=== PATIENT | male | born 1950 | race Caucasian/White ===

== ENCOUNTER 2020-02-11 03:05 | Emergency (ER) | payer MEDICARE, OTHER, SELFPAY ==
[2020-02-11 03:11] VITALS: BP 157/80; PULSE 72; RESP 18; TEMP 36.1; O2SAT 99
--- NOTE | 2020-02-11 03:18 | CTR_ITS ---
PROCEDURE INFORMATION: Exam: CT Abdomen And Pelvis Without And With Contrast Exam date and time: 02/11/2020 3:49 AM Age: 69 years old Clinical indication: Abdominal pain; Flank; Left; Additional info: Lt. Flank pain TECHNIQUE: Imaging protocol: Computed tomography of the abdomen and pelvis without and with intravenous contrast. Radiation optimization: All CT scans at this facility use at least one of these dose optimization techniques: automated exposure control; mA and/or kV adjustment per patient size (includes targeted exams where dose is matched to clinical indication); or iterative reconstruction. Total DLP: 1275.79 mGy-cm Contrast material: VISI; Contrast volume: 95 ml; Contrast route: 20G; COMPARISON: No relevant prior studies available. FINDINGS: Lungs: Lung bases are clear. Liver: The liver is normal. Gallbladder and bile ducts: The gallbladder is normal. There is no biliary dilation. Pancreas: The pancreas is unremarkable. Spleen: Splenic size is normal. There are scattered calcifications consistent with healed granulomas. Adrenals: The adrenal glands are unremarkable. Kidneys and ureters: There is mild left hydronephrosis and hydroureter. No hydronephrosis on the right. There is a nonobstructive stone in the right kidney. There is mild left perinephric edema. Stomach and bowel: The stomach is decompressed, preventing meaningful evaluation of wall thickness. The small bowel is nondilated. There is no sign of inflammation. There is mild distal descending and sigmoid colonic diverticulosis without evidence of diverticulitis. Appendix: The appendix is not visible. Intraperitoneal space: There is no free air or significant intraperitoneal free fluid. Vasculature: There is moderate aortic atherosclerotic disease. There is no aortic aneurysm. Lymph nodes: There is no lymphadenopathy in the retroperitoneum, mesentery, pelvis or inguinal regions. Bladder: There is a 3 x 2 x 2 mm stone within the bladder wall or lumen at the level of the left ureterovesical junction. Reproductive: The prostate and seminal vesicles are unremarkable. Bones/joints: Bones are unremarkable. Soft tissues: The abdominal wall is intact. CT/CT abdomen pelvis wo/w [id number] IMPRESSION: 3 mm stone at the left ureterovesical junction probably within the bladder wall producing mild hydronephrosis. Radiation Dose CTDIVOL = (mGy): DLP = 1275.79 (mGy-cm)
[2020-02-11 03:27] VITALS: RESP 16
[2020-02-11] MEDS: morphine 4 mg/mL SDV 1 mL IVP (03:27)
[2020-02-11] MEDS: ondansetron 2 mg/ML SDV 2 mL 4 MG IVP (03:28)
[2020-02-11] MEDS: sodium chloride 0.9% 1,000 ML 100 ML IV (03:28)
--- NOTE | 2020-02-11 03:31 | W.ED.BACK ---
HPI - Back Pain/Injury General: Chief Complaint: Back Pain/Injury Stated Complaint: left lower back pain Time Seen by Provider: 02/11/20 03:11 History of Present Illness: HPI Narrative: Mr. Roy is a nice 69-year-old male who comes in complaining of intermittent left lower back and flank pain. He states his symptoms began at 8 AM yesterday and have been intermittent throughout the day. He is never had pain like this before. He describes it as sharp and stabbing. He denies any blood in his urine, fever, chills or dysuria. He states a hot shower helped this morning but that is the only thing that he is aware of that makes his symptoms better or worse. Patient states he has no chronic medical problems and denies having anything like this previously. Associated symptoms: Reports nausea; Deny abdominal pain, chills, difficulty walking, dysuria, fatigue, fever(s), hematuria, syncope, urinary urgency or vomiting Review of Systems General: Reports: other (negative unless marked) Const: Denies: fever, chills, body aches, fatigue, malaise or diaphoresis Eyes: Denies: change in vision or blurry vision ENMT: Denies: throat pain, painful swallowing, hoarseness, ear pain, ear discharge, Change in hearing or nasal discharge Card: Denies: chest pain, palpitations, irregular heart rhythm, syncope, pre-syncope, shortness of breath on exertion or shortness of breath when lying down Resp: Denies: shortness of breath, productive cough, non-productive cough, wheezing, coughing up blood or chest congestion GI: Reports: nausea; Denies: abdominal pain, vomiting, vomiting blood, coffee grounds in vomit, diarrhea, constipation, cramping, blood in stool or black tarry stool : Reports: flank pain; Denies: difficulty urinating, painful urination, urinary frequency, urinary urgency, decreased urine ouput, urinary incontinence or blood in urine Musc: Denies: neck pain, back pain, extremity pain, extremity swelling, joint pain, joint swelling, joint warmth or joint stiffness Skin/Breast: Denies: rash, skin tenderness or yellow skin Neuro: Denies: headache, numbness in extremities, weakness in extremities, changes in sensation, lack of coordination, difficulty walking, dizziness, vertigo or confusion Endo: Denies: excessive thirst, tired all the time, cold intolerance, excessive sweating, flushing or hot flashes Abimael/Lymph: Denies: easy bruising, easy bleeding, petechiae or enlarged lymph nodes All/Imm: Denies: hives, throat swelling, tongue swelling, facial swelling or acute wheezing PFSH ED PFSH: Medical History (Updated 02/11/20 @ 05:28 by Mary Marie) Anxiety Hyperlipidemia Mitral regurgitation Sleep apnea obstructive Surgical History (Updated 02/11/20 @ 03:33 by Mary Marie) No history of previous surgery Social History Smoking and tobacco status: former smoker Second hand smoke exposure: No Alcohol intake: never Lives independently: Yes Household members: spouse Housing: House Marital status: Current occupational status: retired Physical Exam Const: COMMON NORMALS: no apparent distress, oriented x3, no limitations, healthy appearing and well nourished EXAM LIMITATIONS: no altered mental status GENERAL APPEARANCE: cooperative, well kempt and well developed ORIENTATION/CONSCIOUSNESS: Yes awake HENMT: COMMON NORMALS: normocephalic, head/scalp atraumatic, hearing grossly normal bilaterally, external ears normal, EAC's normal, external nose normal and moist oral mucous membranes HEAD & SCALP: normal to inspection, normocephalic and atraumatic FACE & SINUS: normal facial exam and face symmetric NOSE: external nose normal and nares normal EXTERNAL EAR: Yes external ears normal EXTERNAL AUDITORY CANAL: EAC's normal MOUTH: oral and palatal mucosa normal and tongue normal Eye: COMMON NORMALS: PERRL, EOMs intact bilaterally, conjunctivae normal and no scleral icterus GENERAL EYE: normal appearance of both eyes and normal light reflex CONJUNCTIVA: Yes conjunctivae normal SCLERA: sclerae normal CORNEA: Yes corneas normal PUPIL: Yes PERRL DIRECT OPHTHALMOSCOPY: Yes normal light reflex Neck/C-Spine: COMMON NORMALS: full ROM, no lymphadenopathy, supple, no meningeal signs and no JVD GENERAL: Yes normal visual inspection and Yes trachea midline CERVICAL SPINE: Yes cervical ROM normal Chest: COMMONS NORMALS: inspection of chest normal and palpation of chest normal Resp: COMMON NORMALS: normal respiratory effort, no retractions, no use of accessory muscles and clear to auscultation bilaterally EFFORT & INSPECTION: Yes able to speak in complete sentences AUSCULTATION: clear to auscultation bilaterally Cardio: COMMON NORMALS: no JVD, regular rate, regular rhythm, S1 normal heart sound, S2 normal heart sound, no gallops, no clicks, no murmurs and no rub JUGULAR VENOUS DISTENTION: no JVD RATE: regular rate RHYTHM: regular rhythm HEART SOUNDS: S1 normal and S2 normal GI: COMMON NORMALS: soft to palpation, non-tender, no hepatosplenomegaly and no masses INSPECTION: Yes normal to inspection PALPATION: Yes soft and Yes no hepatosplenomegaly : COMMON NORMALS: Yes no CVA tenderness BLADDER/KIDNEY EXAM: Yes no CVA tenderness Back/Pelvis: COMMON NORMALS: no CVA tenderness, thoracic and lumbar spine normal to inspection, no thoracic nor lumbar tenderness and thoraco-lumbar ROM normal Extremity: COMMON NORMALS: normal to inspection, full ROM, normal capillary refill, no joint enlargement, no clubbing, cyanosis or edema and no calf tenderness Neuro: COMMON NORMALS: oriented x3, CN's II-XII intact bilaterally, moves all extremities, no focal motor deficits and no sensory deficits noted MENINGEAL SIGNS: Yes no meningeal signs Psych: COMMON NORMALS: mental status grossly normal, thought process normal, cooperative, affect normal, speech normal and activity/motor behavior normal APPEARANCE: Yes well kempt SPEECH: Yes normal speech THOUGHT PROCESS: normal thought process Skin: COMMON NORMALS: no rashes or lesions noted, skin turgor normal, no jaundice, no petechiae and no mottling GENERAL SKIN EXAM: no rashes or lesions noted and turgor normal Course Vital Signs: Vital signs: Vital Signs Temperature 97.0 F L 02/11/20 03:11 Pulse Rate 72 02/11/20 03:11 Respiratory Rate 16 02/11/20 03:27 Blood Pressure 157/80 02/11/20 03:11 Pulse Oximetry 99 02/11/20 03:11 MDM - Back Pain/Injury MDM Narrative: Medical decision making narrative: Mr. Roy is a nice 69-year-old male comes in with left-sided flank pain. CT scan reveals left-sided stone with hydroureter that is mild. His kidney function is good. His pain is controlled at this time and he has no vomiting. Evidence of infection in his urine. We will go and discharge the patient home on prophylactic antibiotics, pain medication and nausea medicine. He will be sent home with a urine strainer and he understands he needs follow-up with Dr. Hernández. Lab Data: Attestation: I reviewed the patient's lab results. Labs: Lab Results 02/11/20 02/11/20 02/11/20 Range/Units 03:30 03:30 05:06 WBC 8.0 (4.0-10.0) 10^3/ uL RBC 5.25 (4.1-5.3) 10^6/u L Hgb 15.8 (11.7-16.6) g/dL Hct 47.1 (42.0-52.0) % MCV 89.7 (80-94) fL MCH 30.1 (28.0-34.0) pg MCHC 33.5 (30.0-36.0) g/dL RDW 12.3 (12.1-15.1) % Plt Count 205 (130-400) 10^3/c mm MPV 9.7 (7.4-10.4) fL Neut % (Auto) 80.0 % Lymph % (Auto) 13.6 % Kaufman % (Auto) 5.5 % Eos % (Auto) 0.5 % Baso % (Auto) 0.3 % Neut # (Auto) 6.4 (1.8-7.7) 10^3/u L Lymph # (Auto) 1.1 (0.8-4.8) 10^3/u L Kaufman # (Auto) 0.4 (0.2-0.9) 10^3/u L Eos # (Auto) 0.0 (0.0-0.8) 10^3/u L Baso # (Auto) 0.0 (0.0-0.1) 10^3/u L Nucleated RBC % (a uto) 0 % Nucleated RBCs # 0.0 /100WBC Sodium 140 (136-145) mmol/L Potassium 4.6 (3.5-5.1) mmol/L Chloride 100 (98-107) mmol/L Carbon Dioxide 25 (22-29) mmol/L Anion Gap 19.6 H (5-19) BUN 19 (8-23) mg/dL Creatinine 1.4 H (0.7-1.2) mg/dL Glucose 162 H (65-115) mg/dL Calculated Osmolal ity 290 (285-295) mOsm/k g Calcium 10.5 (8.5-10.5) mg/dL Magnesium 2.2 (1.7-2.3) mg/dL Total Bilirubin 0.3 (0.15-1.2) mg/dL AST 24 (0-40) U/L ALT 19 (0-41) U/L Alkaline Phosphata se 58 (40-130) IU/L Total Protein 8.1 (6.6-8.7) g/dL Albumin 4.7 (3.5-5.2) g/dL Globulin 3.4 (1.3-4.6) g/dL Lipase 24 (13-60) U/L Urine Color Yellow (Yellow) Urine Appearance Clear (CLEAR) Urine pH 8 H (5-7) Ur Specific Gravit y 1.010 (1.005-1.030) Urine Protein Neg (Negative) Urine Glucose (UA) Norm (Normal) Urine Ketones 1+ H (Negative) Urine Blood 3+ H (Negative) Urine Nitrate Negative (Negative) Urine Bilirubin Neg (NEGATIVE) Prot Sulfosalicyli c Acd Negative (Negative) Urine Urobilinogen Norm (Negative) mg/dL Ur Leukocyte Michelle ase Negative (Negative) Urine RBC 0-4 H (0-2) /hpf Urine WBC Rare (0-5) /hpf Ur Squamous Epith Cells Rare (0-5) Urine Bacteria Trace (NONE) Imaging Data^: CT Abd/Pel: Radiologist's impression: [place] [address] CT Scan Report Signed Patient: Andre Roy Unit #: [id number] : 1950 Age/Sex: 69 / M ADM Date: 02/11/20 Loc: ER Room/Bed: Attending Dr: Ordering Provider/Ordering MD: Mary Marie DO Date of Service: 02/11/20 Procedure(s): CT abdomen pelvis wo/w [id number] Accession Number(s): [id number] Report Number: [id number] PROCEDURE INFORMATION: Exam: CT Abdomen And Pelvis Without And With Contrast Exam date and time: 02/11/2020 3:49 AM Age: 69 years old Clinical indication: Abdominal pain; Flank; Left; Additional info: Lt. Flank pain TECHNIQUE: Imaging protocol: Computed tomography of the abdomen and pelvis without and with intravenous contrast. Radiation optimization: All CT scans at this facility use at least one of these dose optimization techniques: automated exposure control; mA and/or kV adjustment per patient size (includes targeted exams where dose is matched to clinical indication); or iterative reconstruction. Total DLP: 1275.79 mGy-cm Contrast material: VISI; Contrast volume: 95 ml; Contrast route: 20G; COMPARISON: No relevant prior studies available. FINDINGS: Lungs: Lung bases are clear. Liver: The liver is normal. Gallbladder and bile ducts: The gallbladder is normal. There is no biliary dilation. Pancreas: The pancreas is unremarkable. Spleen: Splenic size is normal. There are scattered calcifications consistent with healed granulomas. Adrenals: The adrenal glands are unremarkable. Kidneys and ureters: There is mild left hydronephrosis and hydroureter. No hydronephrosis on the right. There is a nonobstructive stone in the right kidney. There is mild left perinephric edema. Stomach and bowel: The stomach is decompressed, preventing meaningful evaluation of wall thickness. The small bowel is nondilated. There is no sign of inflammation. There is mild distal descending and sigmoid colonic diverticulosis without evidence of diverticulitis. Appendix: The appendix is not visible. Intraperitoneal space: There is no free air or significant intraperitoneal free fluid. Vasculature: There is moderate aortic atherosclerotic disease. There is no aortic aneurysm. Lymph nodes: There is no lymphadenopathy in the retroperitoneum, mesentery, pelvis or inguinal regions. Bladder: There is a 3 x 2 x 2 mm stone within the bladder wall or lumen at the level of the left ureterovesical junction. Reproductive: The prostate and seminal vesicles are unremarkable. Bones/joints: Bones are unremarkable. Soft tissues: The abdominal wall is intact. CT/CT abdomen pelvis wo/w [id number] IMPRESSION: 3 mm stone at the left ureterovesical junction probably within the bladder wall producing mild hydronephrosis. Radiation Dose CTDIVOL = (mGy): DLP = 1275.79 (mGy-cm) Dictated By: Kody Aquino MD Signed By: Kody Aquino MD Signed Date/Time: 02/11/20456 DD/ 5 Discharge Plan Discharge Patient Disposition: Home, Self-Care Clinical Impression: Kidney stone on left side Condition: Stable Prescriptions: New [place] 5-325 mg tablet 1 tab PO Q6H PRN (Reason: pain) 5 Days Qty: 20 RF: 0 Zofran 4 mg tablet 4 mg PO Q6H PRN (Reason: nausea and vomiting) Qty: 20 RF: 0 Macrobid 100 mg capsule 100 mg PO BID 7 Days Qty: 14 RF: 0 No Action Ultra CoQ10 75 mg capsule 100 mg PO BID RF: 0 fluticasone propionate [Allergy Relief (fluticasone)] 50 mcg/actuation spray,suspension 2 spray INTRANASAL ONCE Qty: 9.9 RF: 1 pravastatin 80 mg tablet 80 mg PO ONCE Qty: 90 RF: 1 Discharge Orders: Discharge Order (Routine); Ordered 02/11/20 Ordered By: Mary Marie Referrals: Moris Hernández MD [Physician] - 1-3 days Heidi Don FNP [Primary Care Provider] - Discharge Diet: Advance as tolerated Discharge Activity: Increase activity as tolerated Patient Instructions: Kidney Stones (ED), Renal Colic (ED), How to Strain Your Urine (ED) Activity Restrictions/Additional Instructions: Please return to the ER immediately for any of the signs or symptoms listed on your discharge instruction sheets, worsening/changing of your symptoms, you are not getting better as quickly as expected, or for ANY other cause or concerns. Return to the ER for fever, increased pain, vomiting, or for any other cause for concern. Be certain to follow-up with Dr. Hernández and strain your urine. Coding Level of Care Code ED Mortgage Loan Specialist for Chg Fwd Exam Comprehensive
[2020-02-11 03:36] LABS: Basophils % 0.3 %; Eosinophils % 0.5 %; Hematocrit 47.1 % (42.0-52.0); Hemoglobin 15.8 g/dL (11.7-16.6); Lymphocytes # 1.1 10^3/uL (0.8-4.8); Lymphocytes % 13.6 %; Mean Corpuscular HGB Conc 33.5 g/dL (30.0-36.0); Mean Corpuscular Hemoglobin 30.1 pg (28.0-34.0); Mean Corpuscular Volume 89.7 fL (80-94); Mean Platelet Volume 9.7 fL (7.4-10.4); Monocytes # 0.4 10^3/uL (0.2-0.9); Monocytes % 5.5 %; Neutrophils # 6.4 10^3/uL (1.8-7.7); Nucleated Red Blood Cells % 0 %; Platelet Count 205 10^3/cmm (130-400); Red Blood Count 5.25 10^6/uL (4.1-5.3); Red Cell Distribution Width 12.3 % (12.1-15.1)
[2020-02-11 03:56] LABS: Alanine Aminotransferase 19 U/L (0-41); Albumin Level 4.7 g/dL (3.5-5.2); Alkaline Phosphatase 58 IU/L (40-130); Anion Gap 19.6 (5-19); Aspartate Amino Transferase 24 U/L (0-40); Blood Urea Nitrogen 19 mg/dL (8-23); Calcium 10.5 mg/dL (8.5-10.5); Carbon Dioxide 25 mmol/L (22-29); Chloride 100 mmol/L (98-107); Globulin 3.4 g/dL (1.3-4.6); Glucose 162 mg/dL (65-115); Lipase 24 U/L (13-60); Magnesium 2.2 mg/dL (1.7-2.3); Osmolality Calculated 290 mOsm/kg (285-295); Potassium 4.6 mmol/L (3.5-5.1); Sodium 140 mmol/L (136-145); Total Bilirubin 0.3 mg/dL (0.15-1.2); Total Protein 8.1 g/dL (6.6-8.7)
[2020-02-11] MEDS: iodixanol 320 mg/mL 100mL Btl IV (04:38)
[2020-02-11 05:22] LABS: Bacteria Urine TRACE; Bilirubin Urine Neg (NEGATIVE); Blood Urine 3+ (Negative); Glucose Urine UA Norm (Normal); Ketones Urine 1+ (Negative); Leukocyte Esterase Urine Negative (Negative); Nitrate Urine Negative (Negative); Protein Urine Neg (Negative); RBC Urine 0-4 /hpf (0-2); Squamous Epithelial Cell Urine RARE (0-5); Urine Appearance Clear (CLEAR); Urine Color Yellow (Yellow); Urobilinogen Urine Norm (Negative); WBC Urine RARE /hpf (0-5); pH Urine 8 (5-7)
[2020-02-11 05:26] LABS: Sulfosalicylic Acid Urine Negative (Negative)
[2020-02-11] MEDS: ketorolac 30 mg/mL INJ 10 MG IVP (05:38)
[2020-02-11 05:45] VITALS: RESP 18; TEMP 36.4
--- NOTE | 2020-02-12 11:50 | DCPLANNER ---
java project manager had message to schedule a follow up appointment for patient with Dr. Hernández. java project manager called the office of Dr. Hernández, spoke with Morena. java project manager gave clinic patients information. Clinic will call patient with appointment information.
--- NOTE | 2020-02-16 09:45 | DCPLANNER ---
Patient had an appointment scheduled for 02.12.[address] Hernández. Patient did attend the appointment.
== END 2020-02-11 05:49 | disposition home or self-care (01) ==
PROVIDERS: Emergency Provider Emergency Medicine; PCP Nurse Practitioner Family
DX: N20.0 Calculus of kidney (principal); E78.5 Hyperlipidemia, unspecified; Z87.891 Personal history of nicotine dependence
CPT/HCPCS: 12345; 74178; 80053; 81001; 83690; 83735; 85025; 96361; 96374; 96375; 99282; 99284; J1885; J2270; J2405; J7030; Q9967

== ENCOUNTER 2020-02-12 08:25 | Outpatient (CLI) | payer MEDICARE, OTHER, SELFPAY ==
--- NOTE | 2020-02-12 08:30 | XR_ITS ---
WS: [id number] ABDOMEN KUB CLINICAL INFORMATION: Renal/ureteral calculi. COMPARISON: CT February 11, 2020 FINDINGS: Suspected persistent 3 mm calculus in the left UVJ. Pelvic phleboliths. Mild fecal retentio n right colon. XR/XR KUB 43010 Impression: Suspected persistent millimeters calculus in the left UVJ
== END 2020-02-12 08:26 | disposition home or self-care (01) ==
LOC: RAD 08:28
PROVIDERS: PCP Nurse Practitioner Family; Visit Provider Urology
DX: N20.0 Calculus of kidney (principal)
CPT/HCPCS: 74018; 81001

== ENCOUNTER 2020-02-26 08:07 | Outpatient (CLI) | payer MEDICARE, OTHER, SELFPAY ==
--- NOTE | 2020-02-26 08:15 | XR_ITS ---
WS: [id number] XR KUB [id number] REASON FOR EXAM: URETERAL CALCULUS FINDINGS: Along the left mid ureter at the L3 level is a density overriding the soft tissue appears t o be a 4.52 mm stone. The right kidney is poorly seen due to overriding fecal stasis. On previous exam at the ureterovesical junction appear to be a stone is no longer is evident. XR/XR KUB 12282 IMPRESSION: Ureteropelvic junction calcification on the left side disappeared. There is a again noted a 4.52 mm density at the L3 region this appears to be a stone.
== END 2020-02-26 08:08 | disposition home or self-care (01) ==
LOC: RAD 08:11
PROVIDERS: Visit Provider Urology
DX: N20.1 Calculus of ureter (principal)
CPT/HCPCS: 74018; 81001; 82365

== ENCOUNTER 2020-04-30 08:43 | Inpatient (IN) | payer MEDICARE, OTHER, SELFPAY ==
[2020-04-30] VITALS (15 sets, daily range): BP systolic 99–135; BP diastolic 54–81; PULSE 57–72; RESP 16–20; TEMP 36.7–37.2; O2SAT 95–99; BMI 22.5
--- NOTE | 2020-04-30 08:58 | XRR_ITS ---
PROCEDURE INFORMATION: Exam: XR Chest, 1 View Exam date and time: 04/30/2020 9:56 AM Age: 70 years old Clinical indication: Patient HX: Recent syncope, cough TECHNIQUE: Imaging protocol: XR of the chest Views: 1 view. COMPARISON: No relevant prior studies available. FINDINGS: Lungs: Lungs are clear bilaterally. Pleural space: No pleural effusion. No pneumothorax. Heart/Mediastinum: Right paratracheal calcified lymph nodes. Vasculature: Vascular calcifications in the aorta. Bones/joints: Unremarkable for age. XR/XR chest 1V portable [id number] IMPRESSION: 1. No acute cardiopulmonary process. 2. Incidental/nonacute findings are listed in the report.
--- NOTE | 2020-04-30 08:58 | ECG_ITS ---
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 Measurements Intervals [place] Rate: 61 P: 70 OK: 146 QRS: 75 QRSD: 89 T: 37 QT: 405 QTc: 411 Interpretive Statements SINUS RHYTHM POSSIBLE LEFT ATRIAL ENLARGEMENT [-0.1mV P WAVE IN V1/V2] No previous ECG available for comparison Electronically Signed On 04-30-2020 10:28:13 CDT by Jacinto Gallegos M.D. [email or web address]
--- NOTE | 2020-04-30 09:30 | ED_ITS ---
HPI - Syncope General: Chief Complaint: Syncope Stated Complaint: syncope / weakness Time Seen by Provider: 04/30/20 08:57 History of Present Illness: HPI narrative: This patient is a 70-year-old gentleman presenting with syncopal episode. He is generally quite healthy and in good physical condition. This morning he got up and was having frequent sensations of palpitations. While he was in the shower he started feeling them persistently, became nauseous and felt as though he was get a pass out. He did pass out and fell in the shower but denies injury. He said he gets palpitations not infrequently but has never had them as much as he had them this morning. He denies any chest pain or shortness of breath. He has had a cough and a low- grade fever of just below 100. 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 He was last around his it solutions architect a week or a week and a half ago. The it solutions architect tested positive right around 23 April. The patient also says his has had a cough and low-grade fever. MD complaint: loss of consciousness Onset (ago): minute(s) (Just prior to arrival) Prodromal symptoms: lightheaded, palpitations, diaphoresis and nausea/vomiting Witnessed: No Context: other (While in the shower) Injuries sustained associated with event: none Associated symptoms: Reports fever(s) (Low-grade); Deny abdominal pain, chest pain, headache(s) or nausea Treatments prior to arrival: none Review of Systems General: Reports: 10 or more systems reviewed and unremarkable except in HPI and below Const: Reports: fever(s) (Low-grade); Denies: chills, fatigue or malaise Eyes: Denies: change in vision ENMT: Denies: odynophagia Card: Reports: palpitations; Denies: chest pain or swelling of feet/ankles Resp: Reports: non-productive cough; Denies: dyspnea or productive cough GI: Denies: abdominal pain, nausea or vomiting : Denies: flank pain Musc: Denies: neck pain or back pain Skin/Breast: Denies: rash Neuro: Denies: headache(s), numbness in extremities or weakness in extremities Abimael/Lymph: Denies: easy bruising or easy bleeding [facility] PFSH: Medical History Anxiety Hyperlipidemia Left ureteral calculus Mitral regurgitation Renal colic on left side Sleep apnea obstructive Surgical History No history of previous surgery Family History (Updated 04/30/20 @ 13:45 by Frank Jaeger MD) Mother , 80 Diabetes CAD (coronary artery disease) Stroke Father , 80 CAD (coronary artery disease) Stroke Hypertension Cancer bone Sister CAD (coronary artery disease) Brother CAD (coronary artery disease) Social History Smoking and tobacco status: former smoker Second hand smoke exposure: No Alcohol intake: never Lives independently: Yes Household members: spouse Housing: House Marital status: Current occupational status: retired Physical Exam Const: COMMON NORMALS: no acute distress, patient oriented x3, no limitations and alert GENERAL APPEARANCE: cooperative and comfortable HENMT: HEAD & SCALP: normal to inspection FACE & SINUS: normal facial exam Eye: GENERAL EYE: appearance normal, both eyes and all related structures Neck/C-Spine: COMMON NORMALS: supple, no meningeal signs and no JVD Chest: COMMONS NORMALS: normal inspection of the chest Resp: COMMON NORMALS: normal respiratory effort, No use of accessory muscles and clear to auscultation bilaterally AUSCULTATION: clear to auscultation bilaterally Cardio: COMMON NORMALS: no JVD, regular rate, regular rhythm and No murmurs present (Cardio) RATE: regular rate RHYTHM: regular rhythm GI: COMMON NORMALS: Normal to inspection, nondistended, normoactive bowel sounds present, Soft to palpation and non-tender INSPECTION: Yes normal to inspection AUSCULTATION: Yes normoactive bowel sounds PALPATION: Yes Soft to palpation Back/Pelvis: COMMON NORMALS: thoracic and lumbar spine normal to inspection Extremity: COMMON NORMALS: normal to inspection Neuro: COMMON NORMALS: patient oriented x3, moves all extremities, no focal motor deficits and no sensory deficits noted SENSORIUM/ORIENTATION: Yes alert MENINGEAL SIGNS: Yes no meningeal signs Psych: COMMON NORMALS: mental status grossly normal, cooperative and normal affect Skin: COMMON NORMALS: no rashes or lesions noted and turgor normal GENERAL SKIN EXAM: no rashes or lesions noted and turgor normal Course Vital Signs: Vital signs: Vital Signs Temperature 98.9 F 04/30/20 15:49 Pulse Rate 64 04/30/20 15:45 Respiratory Rate 20 H 04/30/20 15:45 Blood Pressure 109/61 04/30/20 15:45 Pulse Oximetry 96 04/30/20 15:45 MDM - Syncope MDM Narrative: Medical decision making narrative: Syncopal episode with prodromal symptoms of palpitations. Patient has no cardiac history. He is on cholesterol medications. He has no chest pain. He has had cough and low-grade temp and has had a positive exposure to COVID so will require precautions and testing. Lab Data: Labs: Lab Results 04/30/20 04/30/20 04/30/20 Range/Units 08:59 08:59 08:59 WBC Cancelled Corrected WBC Cancelled RBC Cancelled Hgb Cancelled Hct Cancelled MCV Cancelled MCH Cancelled MCHC Cancelled RDW Cancelled Plt Count Cancelled MPV Cancelled Gran % Cancelled Neut % (Auto) Cancelled Lymph % (Auto) Cancelled Stevens % (Auto) Cancelled Eos % (Auto) Cancelled Baso % (Auto) Cancelled Neut # (Auto) Cancelled Lymph # (Auto) Cancelled Stevens # (Auto) Cancelled Eos # (Auto) Cancelled Baso # (Auto) Cancelled Absolute Gran (aut o) Cancelled Nucleated RBC % (a uto) Cancelled Nucleated RBCs # Cancelled Fibrinogen (184-529) mg/dL D-Dimer (0-0.59) ug/mIFE U Sodium 140 (136-145) mmol/L Potassium 4.4 (3.5-5.1) mmol/L Chloride 105 (98-107) mmol/L Carbon Dioxide 28 (22-29) mmol/L Anion Gap 11.4 (5-19) BUN 17 (8-23) mg/dL Creatinine 1.0 (0.7-1.2) mg/dL Glucose 107 (65-115) mg/dL Calculated Osmolal ity 287 (285-295) mOsm/k g Calcium 9.3 (8.5-10.5) mg/dL Magnesium 2.0 (1.7-2.3) mg/dL Total Bilirubin 0.5 (0.15-1.2) mg/dL AST 25 (0-40) U/L ALT 19 (0-41) U/L Alkaline Phosphata se 46 (40-130) IU/L Troponin T Baselin e 7 (0-15) ng/L Troponin T 120 Min lumbee (0-15) ng/L Delta Troponin T (0-10) ABS# Total Protein 6.4 L (6.6-8.7) g/dL Albumin 4.4 (3.5-5.2) g/dL Globulin 2.0 (1.3-4.6) g/dL Urine Color (Yellow) Urine Appearance (CLEAR) Urine pH (5-7) Ur Specific Gravit y (1.005-1.030) Urine Protein (Negative) Urine Glucose (UA) (Normal) Urine Ketones (Negative) Urine Blood (Negative) Urine Nitrate (Negative) Urine Bilirubin (NEGATIVE) Urine Urobilinogen (Negative) mg/dL Ur Leukocyte Michelle ase (Negative) 04/30/20 04/30/20 04/30/20 Range/Units 08:59 10:48 10:48 WBC 5.4 Corrected WBC RBC 4.67 Hgb 14.1 Hct 43.3 MCV 92.7 MCH 30.2 MCHC 32.6 RDW 13.0 Plt Count 126 L MPV 9.9 Gran % Neut % (Auto) 71.2 Lymph % (Auto) 15.1 Stevens % (Auto) 12.7 Eos % (Auto) 0.4 Baso % (Auto) 0.2 Neut # (Auto) 3.87 Lymph # (Auto) 0.8 Stevens # (Auto) 0.7 Eos # (Auto) 0.0 Baso # (Auto) 0.0 Absolute Gran (aut o) Nucleated RBC % (a uto) 0 Nucleated RBCs # 0.0 Fibrinogen (184-529) mg/dL D-Dimer 7.21 H (0-0.59) ug/mIFE U Sodium (136-145) mmol/L Potassium (3.5-5.1) mmol/L Chloride (98-107) mmol/L Carbon Dioxide (22-29) mmol/L Anion Gap (5-19) BUN (8-23) mg/dL Creatinine (0.7-1.2) mg/dL Glucose (65-115) mg/dL Calculated Osmolal ity (285-295) mOsm/k g Calcium (8.5-10.5) mg/dL Magnesium (1.7-2.3) mg/dL Total Bilirubin (0.15-1.2) mg/dL AST (0-40) U/L ALT (0-41) U/L Alkaline Phosphata se (40-130) IU/L Troponin T Baselin e (0-15) ng/L Troponin T 120 Min lumbee 6.00 (0-15) ng/L Delta Troponin T -1.00 L (0-10) ABS# Total Protein (6.6-8.7) g/dL Albumin (3.5-5.2) g/dL Globulin (1.3-4.6) g/dL Urine Color (Yellow) Urine Appearance (CLEAR) Urine pH (5-7) Ur Specific Gravit y (1.005-1.030) Urine Protein (Negative) Urine Glucose (UA) (Normal) Urine Ketones (Negative) Urine Blood (Negative) Urine Nitrate (Negative) Urine Bilirubin (NEGATIVE) Urine Urobilinogen (Negative) mg/dL Ur Leukocyte Michelle ase (Negative) 04/30/20 04/30/20 Range/Units 10:48 12:20 WBC Corrected WBC RBC Hgb Hct MCV MCH MCHC RDW Plt Count MPV Gran % Neut % (Auto) Lymph % (Auto) Stevens % (Auto) Eos % (Auto) Baso % (Auto) Neut # (Auto) Lymph # (Auto) Stevens # (Auto) Eos # (Auto) Baso # (Auto) Absolute Gran (aut o) Nucleated RBC % (a uto) Nucleated RBCs # Fibrinogen 294 (184-529) mg/dL D-Dimer (0-0.59) ug/mIFE U Sodium (136-145) mmol/L Potassium (3.5-5.1) mmol/L Chloride (98-107) mmol/L Carbon Dioxide (22-29) mmol/L Anion Gap (5-19) BUN (8-23) mg/dL Creatinine (0.7-1.2) mg/dL Glucose (65-115) mg/dL Calculated Osmolal ity (285-295) mOsm/k g Calcium (8.5-10.5) mg/dL Magnesium (1.7-2.3) mg/dL Total Bilirubin (0.15-1.2) mg/dL AST (0-40) U/L ALT (0-41) U/L Alkaline Phosphata se (40-130) IU/L Troponin T Baselin e (0-15) ng/L Troponin T 120 Min lumbee (0-15) ng/L Delta Troponin T (0-10) ABS# Total Protein (6.6-8.7) g/dL Albumin (3.5-5.2) g/dL Globulin (1.3-4.6) g/dL Urine Color Yellow (Yellow) Urine Appearance Clear (CLEAR) Urine pH 5 (5-7) Ur Specific Gravit y 1.015 (1.005-1.030) Urine Protein Neg (Negative) Urine Glucose (UA) Norm (Normal) Urine Ketones 1+ H (Negative) Urine Blood Neg (Negative) Urine Nitrate Negative (Negative) Urine Bilirubin Neg (NEGATIVE) Urine Urobilinogen Norm (Negative) mg/dL Ur Leukocyte Michelle ase Negative (Negative) EKG Data^: EKG 1: EKG interpretation date: 04/30/20 EKG interpretation time: 09:20 Interpretation: Normal sinus rhythm with a rate of 61. SC interval is normal, QRS intervals normal, QTc is normal. Slight left atrial enlargement. No ST elevation or depression. EKG 2: EKG interpretation date: 04/30/20 EKG interpretation time: 10:46 Interpretation: Sinus rhythm with a rate of 67. Slight left atrial enlargement. Otherwise normal. Discharge Plan Discharge Patient Disposition: Placed in Observation Admit Provider: Frank Jaeger Clinical Impression: Heart palpitations, COVID-19 virus test result unknown Syncope Qualifiers: Syncope type: unspecified Qualified Code(s): R55 - Syncope and collapse Condition: Stable Referrals: Olesya Flores MD [Primary Care Provider] - Discharge Date/Time: 04/30/20 14:00 Coding Level of Care Code ED Senior Ui Software Engineer for Chg Fwd Exam Comprehensive
[2020-04-30 10:08] LABS: D Dimer 7.21 ug/mIFEU (0-0.59)
[2020-04-30 10:09] LABS: Alanine Aminotransferase 19 U/L (0-41); Albumin Level 4.4 g/dL (3.5-5.2); Alkaline Phosphatase 46 IU/L (40-130); Anion Gap 11.4 (5-19); Aspartate Amino Transferase 25 U/L (0-40); Blood Urea Nitrogen 17 mg/dL (8-23); Calcium 9.3 mg/dL (8.5-10.5); Carbon Dioxide 28 mmol/L (22-29); Chloride 105 mmol/L (98-107); Glucose 107 mg/dL (65-115); Osmolality Calculated 287 mOsm/kg (285-295); Potassium 4.4 mmol/L (3.5-5.1); Sodium 140 mmol/L (136-145); Total Bilirubin 0.5 mg/dL (0.15-1.2); Total Protein 6.4 g/dL (6.6-8.7)
--- NOTE | 2020-04-30 10:31 | CTR_ITS ---
PROCEDURE INFORMATION: Exam: CT Angiography Chest With Contrast Exam date and time: 04/30/2020 10:43 AM Age: 70 years old Clinical indication: Fever and shortness of breath; Patient HX: Dizziness, weakness, elev d-dimer, covid exposure; Additional info: Syncope, SOB TECHNIQUE: Imaging protocol: Computed tomographic angiography of the chest with intravenous contrast. Sagittal and coronal reformatted images were created and reviewed. 3D rendering: MIP and/or 3D reconstructed images were created by the technologist. Radiation optimization: All CT scans at this facility use at least one of these dose optimization techniques: automated exposure control; mA and/or kV adjustment per patient size (includes targeted exams where dose is matched to clinical indication); or iterative reconstruction. Contrast material: OMNI 350; Contrast volume: 95 ml; Contrast route: INTRAVENOUS (IV); COMPARISON: CR XR chest 1V portable [id number] 04/30/2020 9:43 AM RADIATION DOSE METRICS: Total DLP (mGy-cm): 583.18 FINDINGS: Pulmonary arteries: No filling defects in the pulmonary arteries to suggest pulmonary embolism. Aorta: Moderate atherosclerotic changes in the visualized arteries. No evidence for aortic aneurysm or aortic dissection. Lungs: Tracheobronchial structures are patent. Clustered calcified granulomas in the right middle lobe. Dependent atelectasis in the lungs bilaterally. No focal consolidation. No pulmonary edema. Mild interstitial thickening suggesting fibrotic change in the periphery of both lungs. Pleural space: No pneumothorax. No pleural effusion. Heart: Mild enlargement of the heart. Mild atherosclerotic calcification in the coronary arteries. Mediastinal space: The esophagus is unremarkable. No mediastinal hematoma. No pneumomediastinum. Lymph nodes: Partially calcified and calcified mediastinal and right hilar lymph nodes. No lymphadenopathy. Liver: The visualized liver is unremarkable. Gallbladder and bile ducts: The gallbladder is unremarkable. No biliary ductal dilatation. Pancreas: The visualized pancreas is unremarkable. No pancreatic mass. No pancreatic ductal dilatation. Spleen: Multiple calcified granulomas in the visualized spleen. Small splenule in the left upper quadrant. There is a calcified granuloma in the splenule. Adrenals: The right and left adrenal glands are unremarkable. Kidneys and ureters: The visualized right kidney is unremarkable. Parapelvic cysts in the visualized left kidney. Bones/joints: Mild degenerative changes in the visualized spine. Soft tissues: No acute abnormality in the extrathoracic soft tissues. CT/CT angio chest PE protcl [id number] IMPRESSION: 1. No evidence for pulmonary embolism. 2. Dependent atelectasis in the lungs bilaterally. 3. Incidental/nonacute findings are listed in the report. Radiation Dose CTDIVOL = (mGy): DLP = 583.18 (mGy-cm)
[2020-04-30 10:34] LABS: Troponin(5th) Baseline 7 ng/L (0-15)
[2020-04-30 10:56] LABS: Basophils % 0.2 %; Eosinophils % 0.4 %; Hematocrit 43.3 % (42.0-52.0); Hemoglobin 14.1 g/dL (11.7-16.6); Lymphocytes # 0.8 10^3/uL (0.8-4.8); Lymphocytes % 15.1 %; Mean Corpuscular HGB Conc 32.6 g/dL (30.0-36.0); Mean Corpuscular Hemoglobin 30.2 pg (28.0-34.0); Mean Corpuscular Volume 92.7 fL (80-94); Mean Platelet Volume 9.9 fL (7.4-10.4); Monocytes # 0.7 10^3/uL (0.2-0.9); Monocytes % 12.7 %; Neutrophils # 3.87 10^3/uL (1.8-7.7); Neutrophils % 71.2 %; Nucleated Red Blood Cells % 0 %; Platelet Count 126 10^3/cmm (130-400); Red Blood Count 4.67 10^6/uL (4.1-5.3); White Blood Count 5.4 10^3/uL (4.0-10.0)
--- NOTE | 2020-04-30 10:58 | ECG_ITS ---
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 Measurements Intervals Mary Alice Rate: 67 P: 69 OK: 156 QRS: 73 QRSD: 86 T: 45 QT: 426 QTc: 452 Interpretive Statements SINUS RHYTHM POSSIBLE LEFT ATRIAL ENLARGEMENT [-0.1mV P WAVE IN V1/V2] Compared to ECG 04/30/2020 09:15:28 No significant changes Electronically Signed On 05-01-2020 8:05:28 CDT by Jacinto Gallegos M.D. [id number]
[2020-04-30] MEDS: iohexol 350 mg/mL 100 mL Btl IV (12:05)
[2020-04-30 12:45] LABS: Add Urine Microscopic? NO
[2020-04-30 12:58] LABS: Bilirubin Urine Neg (NEGATIVE); Blood Urine Neg (Negative); Glucose Urine UA Norm (Normal); Ketones Urine 1+ (Negative); Leukocyte Esterase Urine Negative (Negative); Nitrate Urine Negative (Negative); Protein Urine Neg (Negative); Specific Gravity, Urine 1.015 (1.005-1.030); Urine Appearance Clear (CLEAR); Urine Color Yellow (Yellow); Urobilinogen Urine Norm (Negative); pH Urine 5 (5-7)
--- NOTE | 2020-04-30 13:34 | P.HP_ITS ---
Providers/Chief Complaint Admitting Physician: Frank Jaeger MD Primary Care Provider: Olesya Flores MD Chief Complaint: syncope / weakness History of Present Illness Andre Roy is a 70 year old male with a significant family history of CAD, history of left ureteral calculi, on a statin due to family history of CAD, who presents to [facility] due to syncopal episode. Patient states that he is quite physically active, jogs regularly, has no significant cardiovascular history, has no significant lung history, no history of strokes, who presents to [facility] due to syncopal episode. Patient states that this morning, he woke up around 6 AM on Saturday, he went and brushed his teeth, did not feel immediately lightheaded or dizzy or any significant symptomatology,, and then said he stepped into the warm shower, he likes to warm up the shower before he steps into it, and a few minutes into showering, he had this unusual feeling, over him, he felt unusual feeling in his chest, as if he were to have palpitations of the chest, he called out his , but his was sleeping in bed, and then the next thing he remembers he was on the floor with his around him and his son was helping him pick him up off the shower floor. Says that he is not sure if he hit his head, but his back hurt him, no other muscle aches or pains, no urinary or bowel incontinence, no seizure-like episodes reported. No focal neurologic deficits, no numbness no tingling, no slurring of his speech, no facial droop, no paralysis. I spoke to patient's , who w itnessed the episode, says that she woke up after called out to her, she found him on the shower floor, she tried to arouse him, but was not arousable, so she called out to her son, he had what she describes as not completely with it, some degree of postictal confusion, took roughly 5 minutes for him to become aroused, and then was fully alert awake and oriented. She did not notice any fa cial droop, any paralysis, any slurring of speech, no unilateral weakness, no seizure-like episode. Patient son helped him up off the floor, and he was able to walk a few minutes after. Patient states that for the past few months he has had some chest palpitations, and usually feeling in his chest. No chest pain per se. No pain radiating to his neck. No pain rating down his arm. No shortness of breath. No recent surgeries. No calf pain or calf swelling. No recent travel. 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 No history of stenting. No history of atrial fibrillation. Patient does state that on April 24 he attended [employer] services, and his cook vegetable tested positive on April or , he thinks he might of been exposed, but is exactly unsure the proximity to the affected individual. Since then he has been complaining of low-grade fevers, some cough, nonproductive, no shortness of breath, no lightheadedness, no dizziness. Review of Systems Const: Denies: fever(s), chills, fatigue or malaise Eyes: Denies: change in vision or blurry vision ENMT: Denies: nasal congestion Card: Reports: palpitations, irregular heart rhythm and syncope; Denies: chest pain, edema, swelling of feet/ankles or dyspnea on exertion Resp: Denies: dyspnea, productive cough, non-productive cough or wheezing GI: Denies: abdominal pain, nausea, vomiting, hematemesis, diarrhea, con stipation, hematochezia or melena : Denies: flank pain, difficulty urinating, dysuria or urinary frequency Musc: Denies: neck pain or back pain Skin/Breast: Denies: rash Neuro: Denies: headache(s), dizziness or vertigo Psych: Denies: anxiety or depression Endo: Denies: polyuria or polydipsia Medications/Allergies Home Medications Medication Instructions Recorded Confirmed Last Taken Type coenzyme Q10 75 mg capsule 100 mg PO BID cap 10/16/19 04/30/20 04/29/20 History fluticasone propionate 50 See Rx Instructions .ROUTE 04/08/20 04/30/20 Unknown Rx mcg/actuation nasal .COMPLEX #16 gram spray,suspension Vitamin D2 See Rx Instructions .ROUTE .COMPLEX 04/30/20 04/30/20 Unknown History acetaminophen [Tylenol] 325 mg PO QID PRN 04/30/20 04/30/20 04/29/20 History pravastatin 80 mg PO DAILY 04/30/20 04/30/20 04/29/20 History Allergies Allergy/AdvReac Type Severity Reaction Status Date / Time No Known Allergies Allergy Verified 04/30/20 10:44 PFSH Acute PFSH: Medical History Anxiety Hyperlipidemia Left ureteral calculus Mitral regurgitation Renal colic on left side Sleep apnea obstructive Surgical History No history of previous surgery Family History (Updated 04/30/20 @ 13:45 by Frank Jaeger MD) Mother , 80 Diabetes CAD (coronary artery disease) Stroke Father , 80 CAD (coronary artery disease) Stroke Hypertension Cancer bone Sister CAD (coronary artery disease) Brother CAD (coronary artery disease) Social History Smoking and tobacco status: former smoker Second hand smoke exposure: No Alcohol intake: never Lives independently: Yes Household members: spouse Housing: House Marital status: Current occupational status: retired Vitals/I&O/Wt Last Vital Signs Temp 98.8 F 04/30/20 08:47 Pulse 64 04/30/20 12:22 Resp 18 04/30/20 12:22 BP 112/54 04/30/20 10:52 Pulse Ox 97 04/30/20 12:22 Weight last 48 hrs Weight 70.307 kg Physical Exam Const: COMMON NORMALS: no acute distress and patient oriented x3 GENERAL APPEARANCE: cooperative and comfortable HENMT: COMMON NORMALS: normocephalic HEAD & SCALP: normocephalic Eye: COMMON NORMALS: Equal, round and reactive pupils present and EOMs intact bilaterally GENERAL EYE: appearance normal, both eyes and all related structures PUPIL: Yes Equal, round and reactive pupils present Neck/C-Spine: COMMON NORMALS: full ROM, no lymphadenopathy, no JVD and Thyroid normal THYROID: Thyroid normal Lymph: LYMPHATIC: no lymphadenopathy noted Resp: COMMON NORMALS: normal respiratory effort, No retractions, No use of accessory muscles and clear to auscultation bilaterally AUSCULTATION: clear to auscultation bilaterally Cardio: COMMON NORMALS: no JVD, regular rate, regular rhythm, S1 normal heart sound present, S2 normal heart sound present, No gallops present (Cardio), No clicks present (Cardio) and No murmurs present (Cardio) RATE: regular rate RHYTHM: regular rhythm HEART SOUNDS: S1 normal heart sound present and S2 normal heart sound present GI: COMMON NORMALS: Normal to inspection, nondistended, normoactive bowel sounds present, Soft to palpation, non-tender and No hepatosplenomegaly present PALPATION: Yes Soft to palpation and Yes No hepatosplenomegaly present Extremity: COMMON NORMALS: normal to inspection, full ROM and no pedal edema Neuro: COMMON NORMALS: patient oriented x3, CN's II-XII intact bilaterally, moves all extremities and no focal motor deficits Psych: COMMON NORMALS: mental status grossly normal, Normal thought process present and cooperative THOUGHT PROCESS: Normal thought process present Data : 04/30/20 10:48 04/30/20 08:59 A&P Assessment and plan (1) Syncope: This sounds like a true syncopal event Sounds cardiac in etiology Does not sound like it was a seizure Could be orthostatic, but no orthostatic vitals were obtained in the ER EKG normal sinus rhythm, no significant T wave changes, no significant troponin elevation No focal neurologic deficits, alert and oriented x3, no paresthesias, no facial droop, no slurring of her speech Given the chest palpitations, I am worried about the possibility of embolic str florinda, but for it to cause global symptoms and a sudden return to normal is fairly unlikely Plan: -Admit to cardiac stepdown unit -Serial EKGs, telemetry monitoring, serial troponins -Aspirin, statin -Monitor blood pressure -Neurochecks -Orthostatic vitals twice daily -We will do CT of the head -Carotid ultrasound, cardiac echo -TSH, mag, phos -Consider Holter monitoring on discharge Status: Acute Qualifiers: Syncope type: unspecified Qualified Code(s): R55 - Syncope and collapse (2) Heart palpitations: Status: Acute (3) COVID-19 virus test result unknown: -COVID exposure, with low-grade fevers, cough -COVID testing is pending Status: Acute Additional A&P Information Full code, SCDs for DVT prophylaxis, hold pharmacologic DVT prophylaxis until CT of the head can rule out intracranial bleed Attestations Medical Necessity Statement*: Patient requires hospitalization, inpatient, greater than 2 midnights, for syncopal episode, possible COVID exposure and symptomatology Coding Level of Care Code Acute Executive Producer Promos for g Fwd Diagnoses Syncope R55 Syncope type: unspecified Heart palpitations R00.2 COVID-19 virus test result unknown Z20.828
--- NOTE | 2020-04-30 14:17 | PC.NURSE ---
Addendum entered by Zoya Uriarte RN 04/30/20 19:26: 1543 pm- Discuss the finding of small bruising on lower posterior back post fall and pt's report of bowel movement when he had syncopal episode. Original Note: From ER Pt is awake, oriented, awake. Reports of soreness on her back post fall. bruising noted on his back. Noted swelling, infiltration on IV on right AC. Pt stated it is sore and they give contrast in the CT scan on this area. Remove IV and applied pressure and coband to site. Oriented pt to room, and call light use. Vital signs taken. Orthostatic BP taken- laying-99/71; sitting, 109/69; standing-93/63. Hr-56 to 64.
--- NOTE | 2020-04-30 14:20 | PC.NURSE ---
From ER Pt is alert, awake, oriented. is on droplet and contact isolation for r/o covid. oriented pt to nurse. call light within reach. vs taken by python django developer.
--- NOTE | 2020-04-30 14:58 | ECG_ITS ---
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 Measurements Intervals Independence Rate: 65 P: 62 ND: 149 QRS: 64 QRSD: 89 T: 2 QT: 396 QTc: 413 Interpretive Statements SINUS RHYTHM NONSPECIFIC T-WAVE ABNORMALITY Compared to ECG 04/30/2020 10:49:29 T-wave abnormality now present Electronically Signed On 05-01-2020 8:06:12 CDT by Jacinto Gallegos M.D. [email or web address] InnovationSirionLabsparkview health montpelier hospitalDailyplaces GmbH/store/OM/[id number]/[id number]
[2020-04-30 15:32] LABS: Lactic Sepsis W/Reflex 1.7 mmol/L (0.5-2.2)
--- NOTE | 2020-04-30 15:38 | PC.NURSE ---
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 Noted PVc an HR-56, instructed pt lay down back in bed with feet up. BP-99/71. notified.
[2020-04-30] MEDS: sodium chloride 0.9% 1,000 ML 75 ML IV (15:56)
[2020-04-30] MEDS: acetaminophen 325 mg Tablet 650 MG PO (15:57)
[2020-04-30 15:58] LABS: Fibrinogen 294 mg/dL (184-529)
[2020-04-30 16:12] LABS: C Reactive Protein 0.4 mg/L (0.0-4.9); Ferritin 610 ng/mL (30-400); Lactate Dehydrogenase 172 U/L (135-225); NT Pro B Type Natriuretic Pept 31 pg/mL (0-125)
[2020-04-30 16:13] LABS: Thyroid Stimulating Hormone 0.83 uIU/mL (0.27-4.20)
[2020-04-30 16:45] LABS: Estmated Average Glucose 108; Hemoglobin A1C 5.4 % (4.0-6.0)
[2020-04-30 16:49] LABS: Troponin 5 6HR 6.94 ng/L (0-15)
[2020-04-30 16:59] LABS: Troponin 5 6HR Delta -0.06 ng/L (0-12)
--- NOTE | 2020-04-30 20:35 | PC.NURSE ---
Rounding: Patient resting in bed. Patient is alert and oriented at this time. Patient denies any complaints at this time. Patient call light is within reach, bed in low position, side rail up x2. Will continue to monitor.
--- NOTE | 2020-04-30 23:57 | PC.NURSE ---
CT called reguarding patients Head CT. Patient is on COVID precautions. Called house furnishings supervisor to clarify if patient could go or not. Was told patient could not go until results were back.
[2020-05-01] VITALS (9 sets, daily range): BP systolic 100–145; BP diastolic 63–86; PULSE 56–102; RESP 15–24; TEMP 36.7–37.1; O2SAT 96–98
[2020-05-01 03:43] LABS: Basophils % 0.2 %; Eosinophils # 0.1 10^3/uL (0.0-0.8); Eosinophils % 1.7 %; Hematocrit 40.5 % (42.0-52.0); Hemoglobin 13.2 g/dL (11.7-16.6); Lymphocytes # 1.2 10^3/uL (0.8-4.8); Lymphocytes % 29.6 %; Mean Corpuscular HGB Conc 32.6 g/dL (30.0-36.0); Mean Corpuscular Hemoglobin 30.1 pg (28.0-34.0); Mean Corpuscular Volume 92.3 fL (80-94); Mean Platelet Volume 10.1 fL (7.4-10.4); Monocytes # 0.6 10^3/uL (0.2-0.9); Monocytes % 14.7 %; Neutrophils # 2.23 10^3/uL (1.8-7.7); Neutrophils % 53.6 %; Nucleated Red Blood Cells % 0 %; Platelet Count 122 10^3/cmm (130-400); Red Blood Count 4.39 10^6/uL (4.1-5.3); Red Cell Distribution Width 12.8 % (12.1-15.1); White Blood Count 4.2 10^3/uL (4.0-10.0)
[2020-05-01] MEDS: acetaminophen 325 mg Tablet 650 MG PO ×2 (03:52→09:52)
[2020-05-01 04:04] LABS: Alanine Aminotransferase 17 U/L (0-41); Albumin Level 3.5 g/dL (3.5-5.2); Alkaline Phosphatase 39 IU/L (40-130); Anion Gap 13.1 (5-19); Aspartate Amino Transferase 19 U/L (0-40); Blood Urea Nitrogen 16 mg/dL (8-23); Calcium 8.4 mg/dL (8.5-10.5); Carbon Dioxide 24 mmol/L (22-29); Chloride 106 mmol/L (98-107); Globulin 2.5 g/dL (1.3-4.6); Glucose 101 mg/dL (65-115); Osmolality Calculated 284 mOsm/kg (285-295); Phosphorus 3.6 mg/dL (2.5-4.5); Potassium 4.1 mmol/L (3.5-5.1); Sodium 139 mmol/L (136-145); Total Bilirubin 0.4 mg/dL (0.15-1.2)
[2020-05-01 04:09] LABS: Chol HDL Ratio 3.88 mg/dL (1.0-5.00); Cholesterol 163 mg/dL (0-200); HDL Cholesterol 42 mg/dL (60-100); LDL Cholesterol Calculated 107 mg/dL (50-129); LDL HDL Ratio 2.55 RATIO (0.00-3.22); Triglycerides 71 mg/dL (0-150)
[2020-05-01] MEDS: sodium chloride 0.9% 1,000 ML 75 ML IV (05:49)
--- NOTE | 2020-05-01 05:51 | PC.NURSE ---
Fluids changed late due to fluids still being in the bag. End of shift Patient is alert and oriented. No complaints of dizzyness. Patient has ambulated around his room with no assistance. Patient has had complaints of minor back pain relieved with movement and tylenol. Call light is within reach and will continue to monitor.
[2020-05-01] MEDS: fluticasone nasal spray 16gm Btl 1 SPRAY NASAL (09:52)
[2020-05-01] MEDS: atorvastatin 40 mg Tablet 20 MG PO (09:52)
--- NOTE | 2020-05-01 13:14 | P.PN_ITS ---
Subjective Subjective: Interval history: Yesterday patient had an episode of lightheadedness while in bed, nurses were drawing blood, he felt flushed, telemetry showed PVCs, his blood pressure dropped into the 90s over 60s, but blood pressure quickly recovered, who is alert oriented x3, just did not feel well, felt palpitations, after that he felt well, denies any issues with needles or blood draws in the past. Patient does state over the night, he had intermittent palpitations, telemetry shows PVCs, no chest pain per se, no lightheadedness, no dizziness, no shortness of breath, no fevers Vitals/I&O/Wt Last Vital Signs Temp 98.1 F 05/01/20 10:43 Pulse 56 L 05/01/20 10:43 Resp 15 05/01/20 10:43 BP 111/67 05/01/20 10:43 Pulse Ox 97 05/01/20 10:43 04/30/20 05/01/20 05/01/20 22:59 06:59 14:59 Intake Total 480 / 480 1000 / 1480 360 / 360 Output Total 350 / 350 Balance 480 / 480 1000 / 1480 10 / 10 Weight last 48 hrs Weight 70.307 kg Physical Exam Const: COMMON NORMALS: no acute distress and patient oriented x3 HENMT: COMMON NORMALS: normocephalic HEAD & SCALP: normocephalic Neck/C-Spine: COMMON NORMALS: no JVD Resp: COMMON NORMALS: normal respiratory effort, No retractions, No use of accessory muscles and clear to auscultation bilaterally AUSCULTATION: clear to auscultation bilaterally Cardio: COMMON NORMALS: no JVD, regular rate, regular rhythm, S1 normal heart sound present and S2 normal heart sound present RATE: regular rate RHYTHM: regular rhythm HEART SOUNDS: S1 normal heart sound present and S2 normal heart sound present GI: COMMON NORMALS: Normal to inspection, nondistended, normoactive bowel sounds present, Soft to palpation, non-tender, No hepatosplenomegaly present, no masses and no bruits PALPATION: Yes Soft to palpation and Yes No hepatosplenomegaly present Extremity: COMMON NORMALS: capillary refill normal, no clubbing, cyanosis or edema, no calf tenderness and no pedal edema Neuro: COMMON NORMALS: patient oriented x3 Psych: COMMON NORMALS: mental status grossly normal Data : 05/01/20 03:16 05/01/20 03:16 Micro: Microbiology 04/30/20 19:20 Blood Culture - Preliminary Blood SPECIMEN COLLECTED 04/30/20 14:51 Blood Culture - Preliminary Blood SPECIMEN COLLECTED A&P Assessment and plan (1) Syncope: This sounds like a true syncopal event Sounds cardiac in etiology Telemetry shows frequent PVCs Continues to complain of palpitations Had one episode of lightheadedness, hypotension, feeling flushed, palpitations during a blood draw Does not sound like it was a seizure Orthostats negative EKG normal sinus rhythm, no significant T wave changes, no significant troponin elevation No focal neurologic deficits, alert and oriented x3, no paresthesias, no facial droop, no slurring of her speech Given the chest palpitations, I am worried about the possibility of embolic stroke, but for it to cause global symptoms and a sudden return to normal is fairly unlikely Plan: -Admit to cardiac stepdown unit -Serial EKGs, telemetry monitoring, serial troponins -Aspirin, statin -Monitor blood pressure -Neurochecks -Orthostatic vitals twice daily -We will do CT of the head -Carotid ultrasound, cardiac echo -Consider Holter monitoring on discharge Status: Acute Qualifiers: Syncope type: unspecified Qualified Code(s): R55 - Syncope and collapse (2) Heart palpitations: Status: Acute (3) COVID-19 virus test result unknown: -COVID exposure, with low-grade fevers, cough -COVID testing is pending Status: Acute Additional A&P Information Full code, SCDs for DVT prophylaxis, hold pharmacologic DVT prophylaxis until CT of the head can rule out intracranial bleed Attestations 2 Medical Necessity Statement*: Patient requires continued hospitalization for syncopal episode, complaints of chest palpitations, frequent PVCs, awaiting COVID-19 testing Coding Level of Care Code Acute Jive Developer for [facility] Fwd Diagnoses Syncope R55 Syncope type: unspecified Heart palpitations R00.2 COVID-19 virus test result unknown Z20.828
[2020-05-01 17:52] LABS: Coronavirus Lab Test PTC SEE REPORT
--- NOTE | 2020-05-01 18:45 | PC.NURSE ---
Transferred to VICU Called report. House sup transport patient via wheelchair. mask on with pt.
--- NOTE | 2020-05-01 19:00 | PC.NURSE ---
Received report from ELVIS Thomas. Patient arrived to unit at 1845. Vital signs stable and patient is resting in bed in no apparent distress. Patient is on room air and oxygen saturation is maintaining at 98%-99%. Will continue to monitor.
[2020-05-01] MEDS: enoxaparin 40 mg/0.4 mL Syringe SUBCUT (21:24)
[2020-05-01 21:35] LABS: INR 1.02 (0.8-1.2)
[2020-05-01 21:36] LABS: Partial Thromboplastin Time 28.2 SECONDS (23.9-36.7)
[2020-05-02] VITALS (16 sets, daily range): BP systolic 93–131; BP diastolic 64–87; PULSE 56–67; RESP 13–27; TEMP 36.8; O2SAT 84–99
[2020-05-02] MEDS: acetaminophen 325 mg Tablet 650 MG PO (00:34)
[2020-05-02 05:08] LABS: Basophils % 0.3 %; Hematocrit 39.9 % (42.0-52.0); Hemoglobin 13.2 g/dL (11.7-16.6); Lymphocytes # 1.3 10^3/uL (0.8-4.8); Lymphocytes % 32.9 %; Mean Corpuscular HGB Conc 33.1 g/dL (30.0-36.0); Mean Corpuscular Hemoglobin 30.3 pg (28.0-34.0); Mean Corpuscular Volume 91.5 fL (80-94); Mean Platelet Volume 10.3 fL (7.4-10.4); Monocytes # 0.5 10^3/uL (0.2-0.9); Monocytes % 12.8 %; Neutrophils # 2.02 10^3/uL (1.8-7.7); Neutrophils % 52.7 %; Nucleated Red Blood Cells % 0 %; Platelet Count 120 10^3/cmm (130-400); Red Blood Count 4.36 10^6/uL (4.1-5.3); Red Cell Distribution Width 12.8 % (12.1-15.1); White Blood Count 3.8 10^3/uL (4.0-10.0)
[2020-05-02 05:19] LABS: INR 1.02 (0.8-1.2)
[2020-05-02 05:20] LABS: Partial Thromboplastin Time 34.4 SECONDS (23.9-36.7)
[2020-05-02 05:35] LABS: Alanine Aminotransferase 15 U/L (0-41); Albumin Level 3.4 g/dL (3.5-5.2); Alkaline Phosphatase 37 IU/L (40-130); Anion Gap 12.9 (5-19); Aspartate Amino Transferase 18 U/L (0-40); Blood Urea Nitrogen 14 mg/dL (8-23); Calcium 8.4 mg/dL (8.5-10.5); Carbon Dioxide 24 mmol/L (22-29); Chloride 104 mmol/L (98-107); Globulin 2.5 g/dL (1.3-4.6); Glucose 95 mg/dL (65-115); Magnesium 1.9 mg/dL (1.7-2.3); Osmolality Calculated 280 mOsm/kg (285-295); Phosphorus 3.5 mg/dL (2.5-4.5); Potassium 3.9 mmol/L (3.5-5.1); Sodium 137 mmol/L (136-145); Total Bilirubin 0.4 mg/dL (0.15-1.2); Total Protein 5.9 g/dL (6.6-8.7)
[2020-05-02 05:37] LABS: C Reactive Protein 1.6 mg/L (0.0-4.9); Creatine Phosphokinase 72 U/L (39-308)
[2020-05-02 05:39] LABS: Troponin T (5th) Once 6 ng/L (0-15)
[2020-05-02 05:44] LABS: Ferritin 387 ng/mL (30-400); Lactate Dehydrogenase 142 U/L (135-225); NT Pro B Type Natriuretic Pept 197 pg/mL (0-125)
[2020-05-02 05:49] LABS: D Dimer 1.29 ug/mIFEU (0-0.59)
--- NOTE | 2020-05-02 06:00 | ECG_ITS ---
[facility] ED Test Date: 2020-05-02 Pat Name: Adnre Roy Department: Room: ICU19 Gender: Male Lab Tech: : 1950 Requested By: Caroline Eubanks Order Number: [id number] Radha MD: Jacinto Gallegos M.D. Measurements Intervals Fletcher Rate: 60 P: 48 WI: 155 QRS: 61 QRSD: 87 T: -1 QT: 409 QTc: 411 Interpretive Statements SINUS RHYTHM ABNORMAL QRS-T ANGLE [QRS-T AXIS DIFFERENCE > 60] INTERPRETATION BASED ON A DEFAULT AGE OF 40 YEARS Compared to ECG 04/30/2020 16:26:57 T-wave abnormality no longer present Electronically Signed On 05-02-2020 16:43:12 CDT by Jacinto Gallegos M.D. [email or web address].[email or web address]/store/NU/[id number] f
[2020-05-02 06:28] LABS: Fibrinogen 272 mg/dL (184-529)
--- NOTE | 2020-05-02 06:31 | PC.NURSE ---
SHIFT SUMMARY No acute events over night. Patient's vital signs were stable through out shift. Complained of mild pain to back area that was relieved with Tylenol. Resting comfortably at this time.
[2020-05-02] MEDS: atorvastatin 40 mg Tablet 20 MG PO (08:14)
[2020-05-02] MEDS: fluticasone nasal spray 16gm Btl 1 SPRAY NASAL (09:37)
--- NOTE | 2020-05-02 13:44 | CT_ITS ---
WS: [id number] CT HEAD TECHNIQUE: Noncontrast CT of the head obtained from the skullbase to the vertex. CLINICAL INFORMATION: sycnope COMPARISON: None. DLP: 764.[address] scans at [facility] use at least one of these dose optimization techniques: automat ed exposure control; mA and/or kV adjustment per patient size (includes targeted exams where dose is matched to clinical indication); or iterative reconstruction. FINDINGS: No evidence of intracranial hemorrhage or mass effect. Ventricular system and basal cisterns are finn nt. Mild small vessel changes with mild parenchymal volume loss. No extra-axial fluid collections. No evidence of mass or mass effect. Normal curtis-white differentiation. Mild mucosal thickening ethmoid air cells.Mastoid air cells well aerated. Normal visualized soft tiss ues. CT/CT head wo con* [id number] IMPRESSION: 1. No evidence of intracranial hemorrhage or mass effect. 2. Mild small vessel changes with mild parenchymal volume loss. 3. No acute intracranial findings.
--- NOTE | 2020-05-02 13:44 | USCV_ITS ---
Andre Roy Age: 70 Gender: M : 1950 Exam Date: 05/02/2020 10:24 Ordering Phys: Frank Jaeger MD Technologist: Fabian Cyr Exam Location: [facility] [place] Indication: SYNCOPE BP: 113 / 70 HR: Rhythm: Sinus Technical Quality: Good MEASUREMENTS (Male / Female) Normal Values 2D ECHO LV Diastolic Diameter PLAX 4.4 cm 4.2 - 5.9 / 3.9 - 5.3 cm LV Systolic Diameter PLAX 3.5 cm IVS Diastolic Thickness 0.8 cm 0.6 - 1.0 / 0.6 - 0.9 cm IVS Systolic Thickness 1.6 cm LVPW Diastolic Thickness 0.9 cm 0.6 - 1.0 / 0.6 - 0.9 cm LVPW Systolic Thickness 1.4 cm LVOT Diameter 2.0 cm LV Ejection Fraction 2D Teich 44.4 % LV Ejection Fraction MOD 2C 69.5 % LV Ejection Fraction 2C AL 69.4 % LA Diameter 3.4 cm LA Width 4.0 cm LA Height 4.2 cm RA Width 4.2 cm RA Height 4.9 cm Aorta at Sinotubular Diameter 2.5 cm M-MODE LV Diastolic Diameter MM 4.8 cm 4.2 - 5.9 / 3.9 - 5.3 cm LV Systolic Diameter MM 2.8 cm LV Ejection Fraction MM Teich 72.8 % IVS Diastolic Thickness MM 1.1 cm 0.6 - 1.0 / 0.6 - 0.9 cm IVS Systolic Thickness MM 1.3 cm LVPW Diastolic Thickness MM 1.3 cm 0.6 - 1.0 / 0.6 - 0.9 cm LVPW Systolic Thickness MM 1.8 cm RV Diastolic Diameter MM 1.6 cm Aortic Annulus Diameter 3.5 cm LA Ao Ratio MM 1.0 MV E Point Septal Separation 0.8 cm DOPPLER AV Peak Velocity 184.0 cm/s LVOT Peak Velocity 106.0 cm/s AV Area Cont Eq vti 1.8 cm squared AV Area Cont Eq pk 1.8 cm squared MV Area PHT 5.0 cm squared Mitral E to A Ratio 4.7 MV E' Velocity 10.0 cm/s Mitral E to MV E' Ratio 10.4 Mitral E to LV E' Lateral Ratio 9.5 Mitral E to LV E' Septal Ratio 11.5 TR Peak Velocity 258.0 cm/s TR Peak Gradient 26.6 mmHg TV Peak E Velocity 104.0 cm/s Right Atrial Pressure 3.0 mmHg Pulmonary Artery Systolic Pressu 29.6 mmHg PV Peak Velocity 108.0 cm/s FINDINGS Left Ventricle Normal left ventricular cavity size. Normal left ventricular systolic function. Left ventricular ejection fraction is estimated at 55 %. Grade III/IV diastolic dysfunction (restrictive filling pattern), severely elevated filling pressures. No regional wall motion abnormalities. Right Ventricle The right ventricle is normal in size and function. Right Atrium The right atrium is normal in size. Left Atrium The left atrium is normal in size. Mitral Valve Moderately thickened mitral valve. No mitral valve stenosis. Mild mitral valve regurgitation. Aortic Valve Moderate aortic valve calcification. Mild aortic valve stenosis, mean gradient 5.8 mmHg, RODDY 1.8 cm squared. Tricuspid Valve Structurally normal tricuspid valve without significant stenosis or regurgitation. Pulmonary artery systolic pressure is normal. Pulmonic Valve Structurally normal pulmonic valve without significant stenosis. There is no pulmonic regurgitation. Pericardium Normal pericardium without effusion. Aorta Normal ascending aorta dimension. CONCLUSIONS 1-Normal left ventricular cavity size. Normal left ventricular systolic function. Left ventricular ejection fraction is estimated at 55 %. Grade III/IV diastolic dysfunction (restrictive filling pattern), severely elevated filling pressures. No regional wall motion abnormalities. 2-Moderate aortic valve calcification. Mild aortic valve stenosis, mean gradient 5.8 mmHg, RODDY 1.8 cm squared. 3-Moderately thickened mitral valve. No mitral valve stenosis. Mild mitral valve regurgitation. 4-There is no pericardial effusion. 5-Pulmonary artery systolic pressure is within normal limits. 6-There are no prior echocardiogram studies to compare. Lety Winn MD (Electronically Signed) Final Date: 02 May 2020 14:31 S
--- NOTE | 2020-05-02 13:44 | USCV_ITS ---
King Andre Age: 70 Gender: M : 1950 Exam Date: 05/02/2020 10:38 Ordering Phys: Frank Jaeger MD Technologist: Fabian Cyr Exam Location: [facility] – [place] Indication: SYNCOPE Risk Factors: None Previous Vascular Surgery: None Right Brachial BP: / Left Brachial BP: / Right Left Velocity (cm/s) Spectral Plaque Velocity (cm/s) Spectral Plaque Syst/Diast Broadening Syst/Diast Broadening 78.30/ 16.50 Prox CCA 91.50 / 15.40 83.80/ 24.30 Mid CCA 95.90 / 19.80 75.00/ 24.30 Distal CCA 89.30 / 26.50 103.60/20.90 Prox ICA 125.90/ 36.00 118.00/28.70 Mid ICA 134.90/ 32.40 94.80/ 33.10 Distal ICA 124.10/ 36.00 101.40 ECA 118.70 1.41 ICA/CCA 1.41 Antegrade Vertebral Antegrade 45.20/ 12.10 cm/s 47.90/ 12.80 cm/s Tri Subclavian 118.0 166.2 0 0 CONCLUSIONS Right ICA stenosis <50%. Mild atheromatous plaque right carotid bulb/ICA. Left ICA stenosis 50-69%. Moderate atheromatous plaque left carotid bulb/ICA. Normal antegrade Doppler flow noted in the right vertebral artery. Normal antegrade Doppler flow noted in the left vertebral artery. Carloz Zambrano MD (Electronically Signed) Final Date: 02 May 2020 14:43 S
--- NOTE | 2020-05-02 14:57 | PM.DCS ---
Discharge Providers Date of Admission: 04/30/20 12:53 Date of Discharge: May 02, 2020 Attending Provider at Admission: Frank Jaeger MD Attending Provider at Discharge: Frank Jaeger MD Primary Care Provider: Olesya Flores MD Diagnoses at Discharge Discharge Diagnosis (1) Syncope: Status: Acute Qualifiers: Syncope type: unspecified Qualified Code(s): R55 - Syncope and collapse (2) Heart palpitations: Status: Acute (3) COVID-19 virus test result unknown: Status: Ruled-out Reason for Visit Reason for Visit: syncope / weakness Hospital Course Discharge Summary: Andre Roy is a 70 year old male with a significant family history of CAD, history of left ureteral calculi, on a statin due to family history of CAD, who presents to [facility] due to syncopal episode. For patient's syncopal episode, it sounds truly cardiac in nature, orthostats were negative, EKG had no significant ST-T wave changes, no significant troponin elevations, no significant focal neurologic deficits, his telemetry showed frequent PVCs, CT head was negative for intracranial abnormality/mild small vessel changes with mild parenchymal volume loss, echocardiogram showed grade 3 out of 4 diastolic dysfunction, mild aortic valve stenosis, bilateral carotid artery stenosis showed stenosis on the right less than 50%, stenosis on the left 50 to 69%. During inpatient, patient will had 1 mild episode of presyncope, seemed more vasovagal related to blood draw, did well, ambulating without any significant symptomatology, still complained of intermittent episodes of chest palpitations corresponding to PVCs on telemetry. Overall he did well, ambulating without significant symptomatology, no chest pain, no shortness of breath, no lightheadedness, no dizziness. I have discharged the patient on Lasix 20 mg p.o. daily as needed for diastolic heart failure. In addition aspirin, statin. I have also discharge patient on a Holter monitor, event monitor for the next 30 days. Given his frequent PVCs, and his symptomatology, I will have patient follow-up with cardiology in 1 month for review of Holter monitor, and consideration of stress testing. Patient was advised if you have chest pain, worsening palpitations, lightheaded, dizziness come back to emergency room. Patient was also found to be COVID-19 positive during hospital admission, no fevers, no shortness of breath, no lightheadedness, no dizziness, was slightly lymphopenic on discharge. Patient was advised to repeat blood work in a week. Patient was advised to self isolate, his should be tested, drink plenty electrolyte balance fluids, monitor for fevers, monitor for worsening symptomatology and if so seek medical attention. Physical Exam Const: COMMON NORMALS: no acute distress and patient oriented x3 HENMT: COMMON NORMALS: normocephalic HEAD & SCALP: normocephalic Neck/C-Spine: COMMON NORMALS: no JVD Resp: COMMON NORMALS: normal respiratory effort, No retractions, No use of accessory muscles and clear to auscultation bilaterally AUSCULTATION: clear to auscultation bilaterally Cardio: COMMON NORMALS: no JVD, regular rate, regular rhythm, S1 normal heart sound present and S2 normal heart sound present RATE: regular rate RHYTHM: regular rhythm HEART SOUNDS: S1 normal heart sound present and S2 normal heart sound present GI: COMMON NORMALS: Normal to inspection, nondistended, normoactive bowel sounds present, Soft to palpation, non-tender, No hepatosplenomegaly present, no masses and no bruits PALPATION: Yes Soft to palpation and Yes No hepatosplenomegaly present Extremity: COMMON NORMALS: capillary refill normal, no clubbing, cyanosis or edema, no calf tenderness and no pedal edema Neuro: COMMON NORMALS: patient oriented x3 Psych: COMMON NORMALS: mental status grossly normal Discharge Data Data Completed and Pending: Completed Studies During Hospitalization Category Date Time Status CT angio chest PE protcl [id number] Urge nt Cat Scan 04/30/20 10:[address] head wo con* [id number] Routine Cat Scan 05/02/20 13:44 Completed XR chest 1V stephanie ble [id number] Stat Exams 04/30/20 08:58 Completed CV carotid duplex BI* [id number] Routine Ultrasound 05/02/20 13:44 Completed CV echo complete* [id number] Routine Ultrasound 05/02/20 13:44 Completed Pending at discharge Category Date Time Status Blood Culture Sta t Lab 04/30/20 19:20 Results Complete Blood Co unt w/Auto AM LABS Lab 05/03/20 04:00 Ordered Comprehensive Met abolic Panel AM LA BS Lab 05/03/20 04:00 Ordered Interleukin 6 (IL -6) Serum Stat Lab 04/30/20 08:59 Received Magnesium AM LABS Lab 05/03/20 04:00 Ordered Phosphorus AM LAB S Lab 05/03/20 04:00 Ordered Sputum Culture an d Gram Stain Stat Lab 04/30/20 13:49 Uncollected Labs from last 24 hours 05/02/20 05/02/20 05/02/20 04:45 04:45 04:45 WBC 3.8 L RBC 4.36 Hgb 13.2 Hct 39.9 L MCV 91.5 MCH 30.3 MCHC 33.1 RDW 12.8 Plt Count 120 L MPV 10.3 Neut % (Auto) 52.7 Lymph % (Auto) 32.9 Bullock % (Auto) 12.8 Eos % (Auto) 1.0 Baso % (Auto) 0.3 Neut # (Auto) 2.02 Lymph # (Auto) 1.3 Bullock # (Auto) 0.5 Eos # (Auto) 0.0 Baso # (Auto) 0.0 Nucleated RBC % (a uto) 0 Nucleated RBCs # 0.0 PT INR APTT Fibrinogen D-Dimer Sodium 137 Potassium 3.9 Chloride 104 Carbon Dioxide 24 Anion Gap 12.9 BUN 14 Creatinine 0.9 Glucose 95 Calculated Osmolal ity 280 L Calcium 8.4 L Phosphorus 3.5 Magnesium 1.9 Ferritin Total Bilirubin 0.4 AST 18 ALT 15 Alkaline Phosphata se 37 L Lactate Dehydrogen ase Creatine Kinase Troponin T Gen 5 n g/L 6 C-Reactive Protein NT-Pro-B Natriuret Pep Total Protein 5.9 L Albumin 3.4 L Globulin 2.5 Nasal/Oral COVID-1 9 PCR 05/02/20 05/02/20 05/02/20 04:45 04:45 04:45 WBC RBC Hgb Hct MCV MCH MCHC RDW Plt Count MPV Neut % (Auto) Lymph % (Auto) Bullock % (Auto) Eos % (Auto) Baso % (Auto) Neut # (Auto) Lymph # (Auto) Bullock # (Auto) Eos # (Auto) Baso # (Auto) Nucleated RBC % (a uto) Nucleated RBCs # PT INR APTT Fibrinogen 272 D-Dimer 1.29 H Sodium Potassium Chloride Carbon Dioxide Anion Gap BUN Creatinine Glucose Calculated Osmolal ity Calcium Phosphorus Magnesium Ferritin 387 Total Bilirubin AST ALT Alkaline Phosphata se Lactate Dehydrogen ase 142 Creatine Kinase 72 Troponin T Gen 5 n g/L C-Reactive Protein 1.6 NT-Pro-B Natriuret Pep 197 H Total Protein Albumin Globulin Nasal/Oral COVID-1 9 PCR 05/02/20 05/01/20 04/30/20 04:45 21:18 09:43 WBC RBC Hgb Hct MCV MCH MCHC RDW Plt Count MPV Neut % (Auto) Lymph % (Auto) Bullock % (Auto) Eos % (Auto) Baso % (Auto) Neut # (Auto) Lymph # (Auto) Bullock # (Auto) Eos # (Auto) Baso # (Auto) Nucleated RBC % (a uto) Nucleated RBCs # PT 13.70 H 13.70 H INR 1.02 1.02 APTT 34.4 28.2 Fibrinogen D-Dimer Sodium Potassium Chloride Carbon Dioxide Anion Gap BUN Creatinine Glucose Calculated Osmolal ity Calcium Phosphorus Magnesium Ferritin Total Bilirubin AST ALT Alkaline Phosphata se Lactate Dehydrogen ase Creatine Kinase Troponin T Gen 5 n g/L C-Reactive Protein NT-Pro-B Natriuret Pep Total Protein Albumin Globulin Nasal/Oral COVID-1 9 PCR See report Vitals: Last Vital Signs Temp 98.3 F 05/02/20 04:55 Pulse 60 05/02/20 12:00 Resp 23 H 05/02/20 12:00 BP 126/77 05/02/20 12:18 Pulse Ox 99 05/02/20 12:00 Discharge Plan Discharge Patient Disposition: Home, Self-Care Condition: Stable Prescriptions: New atorvastatin 40 mg Tablet 20 mg PO DAILY 30 Days RF: 0 aspirin 81 mg tablet,delayed release (DR/EC) 81 mg PO DAILY 30 Days Qty: 30 RF: 0 Lasix 20 mg tablet 20 mg PO DAILY PRN (Reason: shortness of breath or wheezing) 30 Days Qty: 30 RF: 0 Continued Ultra CoQ10 75 mg capsule 100 mg PO BID RF: 0 fluticasone propionate 50 mcg/actuation spray,suspension See Rx Instructions .ROUTE .COMPLEX Qty: 16 RF: 2 Tylenol 325 mg Tablet 325 mg PO QID PRN (Reason: Pain) RF: 0 Vitamin D2 See Rx Instructions .ROUTE .COMPLEX RF: 0 Discontinued pravastatin 80 mg tablet 80 mg PO DAILY RF: 0 Discharge Orders: Discharge Order (Routine); Ordered 05/02/20 Ordered By: Frank Jaeger Other Ambulatory Orders: Complete Blood Count w/Auto (Routine) Timeframe: 1 Week Location: Determined by Patient Ordered By: Frank Jaeger Comprehensive Metabolic Panel (Routine) Timeframe: 1 Week Facility: [facility] - Location: Lab - Main Lab Ordered By: Frank Jaeger [place] 30 day event monitor (Routine) Timeframe: 1 Day Facility: [facility] - Location: Cardiac Diagnostic Laboratory Ordered By: Frank Jaeger Referrals: Lety Winn MD [Physician] - 1 month Olesya Flores MD [Primary Care Provider] - Discharge Diet: Cardiac Discharge Activity: Resume usual activity Patient Instructions: Heart Palpitations, Palpitations (DC), Renal Colic (GEN), Syncope (DC), Hand Hygiene (DC) Activity Restrictions/Additional Instructions: -If you have chest pain please come to the emergency room -Please follow-up cardiology in 1 month Discharge Attestations Time Spent in Discharge Care*: less than 30 min Quality Metrics Clinical Quality Measures During this hospital stay, did patient experience: None Coding Level of Care Code Acute Pharmacy Clinical Specialist for Chg Fwd Exam Comprehensive Diagnoses Syncope R55 Syncope type: unspecified Heart palpitations R00.2 COVID-19 virus test result unknown Z20.828
--- NOTE | 2020-05-02 18:06 | PC.NURSE ---
Pt discharged via wheelchair by nursing staff to . All belongings and event monitor with instructions sent with patient. Patient verbalized understanding.
[2020-05-02] MEDS: FUROsemide 20 mg Tablet PO (18:12)
[2020-05-04 18:29] LABS: Interleukin 6 (IL-6) Serum 6.98 pg/mL (<5.00)
--- NOTE | 2020-05-05 10:50 | PC.SOCIAL ---
Spoke with Dr Jaeger. Need to clarify who will follow the heart monitor. Called patient and discussed how he is feeling post discharge. He indicates he is weak and obviously worried about his family and is wondering about wifes test results. Explained that either way she should quarantine for 14 days to be safe. Advised him to call PCP to arrange appt and notify tested positive to arrange the appropriate way to communicate for appt. He was reminded he will need lab work. Advised to not over exert himself and to add activity as able. He was appreciative of the call. His Customer Account Representative is Dr Liz in [place] and . All questions answered for patient. Called Cardiology in [place] to confirm they will follow heart monitor. Updated Preventive Medicine of who would be called and who the report would be sent to. Ottoniel updated this in his system. Updated Dr Jaeger
--- NOTE | 2020-05-06 09:52 | PC.SOCIAL ---
Pt called requesting records be sent to [facility] [employer]. These have been faxed with confirmation of successful transmission. Also patient asked that Atorvastatin be called into [facility]. This was completed as well. NO further questions. Records sent to fax number [phone].
--- NOTE | 2020-06-22 13:50 | PC.SOCIAL ---
Faxed Holter monitor results to Dr Liz per patient request with confirmation that fax was sent succesfully.
== END 2020-05-02 18:13 | disposition home or self-care (01) | DRG 179 ==
LOC: ER 12:54 → CSU 20:39 → ICU 05-01 20:07
PROVIDERS: Emergency Medicine; Hospitalist; Admitting Provider Family Medicine; PCP Family Medicine; Visit Provider Family Medicine
DX: U07.1 COVID-19 (principal); I25.10 Atherosclerotic heart disease of native coronary artery without angina pectoris; Z87.442 Personal history of urinary calculi; E78.5 Hyperlipidemia, unspecified; F41.9 Anxiety disorder, unspecified; I34.0 Nonrheumatic mitral (valve) insufficiency; G47.33 Obstructive sleep apnea (adult) (pediatric); Z87.891 Personal history of nicotine dependence
CPT/HCPCS: 12345; 36415; 70450; 71045; 71275; 80053; 80061; 81003; 82550; 82728; 83036; 83520; 83605; 83615; 83735; 83880; 84100; 84443; 84484; 85025; 85378; 85384; 85610; 85730; 86140; 87040; 87635; 93005; 93306; 93880; 99283; J1650; J7030; Q9967

== ENCOUNTER → 2020-05-23 11:17 | Outpatient (BNVA) | payer MEDICARE, OTHER, SELFPAY | PROVIDERS: PCP Family Medicine; Visit Provider Nurse Practitioner Family | DX: U07.1 COVID-19 (principal) | CPT/HCPCS: 87635 ==

== ENCOUNTER → 2020-06-01 14:16 | Outpatient (BNVA) | payer MEDICARE, OTHER, SELFPAY | PROVIDERS: PCP Family Medicine; Visit Provider Nurse Practitioner Family | DX: U07.1 COVID-19 (principal) | CPT/HCPCS: 87635 ==

== ENCOUNTER → 2020-06-16 10:53 | Outpatient (BNVA) | payer MEDICARE, OTHER, SELFPAY | PROVIDERS: PCP Family Medicine; Visit Provider Nurse Practitioner Family | DX: U07.1 COVID-19 (principal) | CPT/HCPCS: 87635 ==

== ENCOUNTER 2020-08-31 07:26 | Outpatient (CLI) | payer MEDICARE, OTHER, SELFPAY ==
--- NOTE | 2020-08-31 07:35 | XR_ITS ---
WS: [id number] KUB, 08/31/2020 Clinical Data: URETERAL STONE Comparison: KUB, 02/26/2020. Findings: No abnormal intraabdominal masses or calcifications are seen. There is no dilatated small bowel or ev idence of obstruction. No definite renal or ureteral calculi are seen. There is fecal material throughout the colon. The doretha dder is partly full. XR/XR KUB [id number] Impression: Negative KUB.
== END 2020-08-31 07:27 | disposition home or self-care (01) ==
LOC: RAD 07:33
PROVIDERS: PCP Family Medicine; Visit Provider Urology
DX: N20.1 Calculus of ureter (principal)
CPT/HCPCS: 74018; 81003

== ENCOUNTER 2020-10-11 07:39 | Outpatient (CLI) | payer MEDICARE, OTHER, SELFPAY ==
--- NOTE | 2020-10-11 07:45 | XRR_ITS ---
PROCEDURE INFORMATION: Exam: XR Abdomen, 1 View Exam date and time: 10/11/2020 7:55 AM Age: 70 years old Clinical indication: Condition or disease; Kidney or ureter condition; Other: Stone; Additional info: Stones TECHNIQUE: Imaging protocol: XR of the abdomen. Views: Frontal supine view of the abdomen. 1 View. COMPARISON: CR XR KUB [id number] 08/31/2020 7:44 AM FINDINGS: Gastrointestinal tract: The bowel gas pattern is nonspecific. Air filled large bowel including distal rectal gas. Organs: No calcifications are seen overlying the renal outlines or the expected course of the right or left ureters. No suspicious calcifications within the pelvis. Bones/joints: Unremarkable. XR/XR KUB [id number] IMPRESSION: The bowel gas pattern is nonspecific. Air filled large bowel including distal rectal gas. Scattered loops of air filled small bowel none of which are dilated.
== END 2020-10-11 07:40 | disposition home or self-care (01) ==
LOC: RAD 07:42
PROVIDERS: PCP Family Medicine; Visit Provider Urology
DX: N20.9 Urinary calculus, unspecified (principal); R31.0 Gross hematuria
CPT/HCPCS: 74018; 81003; 87635

== ENCOUNTER 2020-10-17 16:15 | Observation (INO) | payer MEDICARE, OTHER, SELFPAY ==
[2020-10-13 11:09] VITALS: BMI 23.6
[2020-10-17] VITALS (15 sets, daily range): BP systolic 108–141; BP diastolic 70–85; PULSE 61–76; RESP 11–20; TEMP 36.3–36.6; O2SAT 96–99
--- NOTE | 2020-10-17 14:54 | XR_ITS ---
WS: [id number] Exam: XR chest 2V* [id number] Date/Time of Exam: 10/17/2020 2:54 PM Reason For Exam: bladder cancer Comparison 04/30/2020. The lungs are clear and fully expanded. Normal cardiomediastinal structures and bony elements. Calcif ied mediastinal lymph nodes. No pleural effusion. XR/XR chest 2V* [id number] IMPRESSION: 1. No acute cardiopulmonary finding. No change.
--- NOTE | 2020-10-17 14:54 | ECG_ITS ---
[facility] Test Date: 2020-10-17 Pat Name: Andre Roy Department: Room: Gender: Male Jacquard Loom Weaver: : 1950 Requested By: Moris Hernández Order Number: [id number] Radha MD: Joshua Bañuelos M.D. Measurements Intervals [place] Rate: 64 P: 60 [place]: 148 QRS: 57 QRSD: 104 T: 51 QT: 433 QTc: 447 Interpretive Statements SINUS RHYTHM Compared to ECG 05/02/2020 09:28:17 No significant changes Electronically Signed On 10-17-2020 16:56:38 ANNEALING FURNACE TENDER by Joshua Bañuelos M.D. [id number]
[2020-10-17] MEDS: sodium chloride 0.9% 1,000 ML 30 ML IV (15:21)
--- NOTE | 2020-10-17 15:49 | W.PM.OPSUD ---
Surgery/Procedure H&P Update DATE OF PROCEDURE: October 17, 2020 DATE H&P PERFORMED: 10/10/20 H&P UPDATE INFORMATION: I have reviewed H&P completed within last 30 days, I have examined patient prior to procedure, No changes to prior documentation and H&P is in [facility] [place] EMR on date indicated PREOP DIAGNOSIS: Newly diagnosed bladder cancer PLANNED PROCEDURE: Operation Date: 10/17/20 14:20 Proposed Procedures p Cystoscopy, transuretheral resection of bladder tumor [id number](Not Applicable) - Moris Hernández MD
[2020-10-17 15:52] LABS: Basophils % 0.7 %; Eosinophils # 0.1 10^3/uL (0.0-0.8); Eosinophils % 2.3 %; Hematocrit 47.7 % (42.0-52.0); Hemoglobin 15.8 g/dL (11.7-16.6); Lymphocytes # 1.8 10^3/uL (0.8-4.8); Lymphocytes % 30.3 %; Mean Corpuscular HGB Conc 33.1 g/dL (30.0-36.0); Mean Corpuscular Hemoglobin 30.2 pg (28.0-34.0); Monocytes # 0.5 10^3/uL (0.2-0.9); Neutrophils # 3.46 10^3/uL (1.8-7.7); Neutrophils % 57.5 %; Nucleated Red Blood Cells % 0 %; Platelet Count 171 10^3/cmm (130-400); Red Blood Count 5.24 10^6/uL (4.1-5.3); Red Cell Distribution Width 12.6 % (12.1-15.1)
--- NOTE | 2020-10-17 15:53 | P.ANESASSM_ITS ---
Pre-Anesthetic Assessment Pre-Anesthetic Assessment: Height/Weight: Height 1.75 m Weight 72.575 kg Temp Pulse Resp BP Pulse Ox 97.9 F 72 18 138/85 97 10/17/20 15:20 10/17/20 15:20 10/17/20 15:20 10/17/20 15:20 10/17/20 15:20 Preop Diagnosis: Newly diagnosed bladder cancer Proposed Procedure: Operation Date: 10/17/20 14:20 Proposed Procedures p Cystoscopy, transuretheral resection of bladder tumor [id number] [id number](Not Applicable) - Moris Hernández MD Was Beta Prakash taken within 24 hours: N/A Last intake: Intake Last Liquid Date 10/17/20 Last Liquid Time 07:30 Last Solid Date 10/16/20 Last Solid Time 20:00 Social: Social History: No alcohol and No tobacco Comment: h/o smoking Exam: Pre-Anes Outpt Exam: alert, oriented x 3, clear to auscultation bilaterally and regular rate & rhythm Airway: Submandibular: WNL Cervical ROM: WNL MP: 2 Dentition: Full Pulmonary: Pulmonary: COPD CV/HEM: CV/HEM: Murmur Comments: Arrhythmias/palpitations : Comments: Bladder tumor Hepatic: Hepatic: None reported GI: GI: None reported Metabolic: Metabolic: None reported Musc/skel: Musc/skel: None reported Neuropsych: Neuropsych: None reported Anesthetic Plan: ASA status: 3 Anesthesia: General Risk of > 500 ml blood loss (7ml/kg in children): No Meds/Allergies Current Medications: Current Medications Generic Name Dose Route Start Last Admin Trade Name Freq PRN Reason Stop Dose Admin Sodium Chloride 1,000 mls @ 30 ml s/hr 10/17/20 15:00 10/17/20 15:21 Sodium Chloride 0.9% IV 10/18/20 14:59 30 mls/hr .Q24H JENNIFER Administration PFSH Anesthesia PFSH: Medical History (Updated 10/11/20 @ 18:48 by Moris Hernández MD) Anxiety Bladder cancer Hyperlipidemia Left ureteral calculus Mitral regurgitation Renal colic on left side Sleep apnea obstructive Urolithiasis Surgical History No history of previous surgery Family History Mother , 80 Diabetes CAD (coronary artery disease) Stroke Father , 80 CAD (coronary artery disease) Stroke Hypertension Cancer bone Sister CAD (coronary artery disease) Brother CAD (coronary artery disease) Social History Smoking and tobacco status: former smoker Second hand smoke exposure: No Alcohol intake: never Lives independently: Yes Household members: spouse Housing: House Marital status: Current occupational status: retired History of recent travel: No Data Anesthesia CBC & Chem 7: 10/17/20 15:19 10/17/20 15:19 Other Labs: Laboratory Results - last 48 hr 10/17/20 15:19 WBC 6.0 RBC 5.24 Hgb 15.8 Hct 47.7 MCV 91.0 MCH 30.2 MCHC 33.1 RDW 12.6 Plt Count 171 MPV 10.0 Neut % (Auto) 57.5 Lymph % (Auto) 30.3 [place] % (Auto) 9.0 Eos % (Auto) 2.3 Baso % (Auto) 0.7 Neut # (Auto) 3.46 Lymph # (Auto) 1.8 [place] # (Auto) 0.5 Eos # (Auto) 0.1 Baso # (Auto) 0.0 Nucleated RBC % (auto) 0 Nucleated RBCs # 0.0 Cardiac Studies: Holter Monitor 06/09/20
--- NOTE | 2020-10-17 15:56 | P.OP_ITS ---
Operative Report Date of procedure: October 17, 2020 Pre-op Diagnosis: Newly diagnosed bladder cancer Post-op diagnosis: same Procedure Done: Cystoscopy, transurethral section of bladder tumor medium Specimens removed/disposition: Bladder tumor and deep biopsies Pathology: Bladder tumor and deep biopsies Surgeon: Edgar Anesthesia: General Estimated blood loss: Minimal Urine output: Not measured Complications: None Brief History: Mr. 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 He is admitted now for TURBT. Procedure: After routine preoperative evaluation examination and obtaining of informed consent he was taken to the operating suite on 10/17/2020 where general anesthesia was administered without difficulty after appropriate timeout was performed, SCDs confirmed to be functioning, preoperative antibiotics administered, beta-melissa protocol confirmed. Prepped and draped in the usual sterile fashion in dorsolithotomy position paying careful attention to avoiding pressure points. 21 [place] cystoscope with 30 degree lens was introduced into the urethral meatus and advanced into the bladder to videoscopy. Bladder was systematically examined. The lesion described above was confirmed. No other gross abnormalities were seen. The tumor was located superior and lateral to the right ureteral orifice with a good distance between the 2. The urethra was then calibrated with [place] sounds and easily accommodated 30 [place]. The 25 [place] continuous-flow resectoscope sheath with visual obturator was advanced into the bladder without difficulty through the well-lubricated urethra. The gyrus bipolar system was utilized for resection and fulguration. Landmarks were ascertained. Resection was initiated at the base and the tumor was resected basically is 1 specimen working around the base with the super loop and evacuated from the bladder and sent for pathologic evaluation. Deep resection of the base into the muscle was then conducted. The specimen was sent separate from the first. Final inspection confirmed meticulous hemostasis. The bladder was drained with an 18 [place] Caal catheter irrigation showed clear efflux. He tolerated the procedure well without complications and was awakened in the operating room and returned to recovery in stable condition. PLANS: 1. Admit to observation status. 2. Mitomycin instillation in the morning with anticipated discharge shortly after.
--- NOTE | 2020-10-17 16:51 | SUR.PHASEI ---
PT AWAKE ALERT TALKATIVE VSS MELO PATENT OF LT PINK URINE NO CLOTS NOTED IV PATENT JAYMIE STRAP TO LT THIGH TO SECURE CATHETER. PT NOW ON RA TRIAL.
--- NOTE | 2020-10-17 16:58 | SUR.PHASEI ---
PT CARE ASSUMED BY KENYA LEAL.
--- NOTE | 2020-10-17 17:16 | ANE.PACU2 ---
Inpatient post-anesthesia follow up: Airway intact: Yes Vital signs: Temperature 97.7 F Pulse Rate 65 Respiratory Rate 15 Blood Pressure 123/76 Pulse Oximetry 99 Oxygen Delivery Me thod Room Air Oxygen Flow Rate 8 Fraction of Inspir ed Oxygen Hydration adequate: Yes Nausea and vomiting: No Pain level: 1 Mental status: Baseline
[2020-10-17 18:06] LABS: Glucose Point of Care 80 mg/dL (70-110)
[2020-10-17] MEDS: cetylpyridinium Lozenge 1 EACH MUCOUS MEM (21:16)
[2020-10-17] MEDS: dextrose 5%-ns + KCl 20 20 MEQ/1,000 ML BAG 50 MEQ IV (21:41)
[2020-10-17] MEDS: ceFAZolin 1,000 MG in sodium chloride 0.9% (plus) 50 ML 100 MG IV (22:01)
[2020-10-17] MEDS: HYDROcodone-acetaminophen 5-325 mg Tablet 1 TAB PO (23:31)
[2020-10-18 01:00] VITALS: BP 108/65; PULSE 68; RESP 17; TEMP 36.6; O2SAT 95
--- NOTE | 2020-10-18 02:01 | PC.NURSE ---
Bladder scan Patient complained of feeling the urge to urinate. Patient is mildly distended but also just had TURBT. He was bladder scanned just to be safe. Only could scan 13ml. Patient given hydrocodone for pain. He is sleeping at this time.
[2020-10-18 05:00] VITALS: BP 112/60; PULSE 66; RESP 17; TEMP 36.6; O2SAT 95
[2020-10-18] MEDS: HYDROcodone-acetaminophen 5-325 mg Tablet 1 TAB PO (06:03)
[2020-10-18] MEDS: ceFAZolin 1,000 MG in sodium chloride 0.9% (plus) 50 ML 100 MG IV (06:06)
--- NOTE | 2020-10-18 07:23 | PM.DCS ---
Discharge Providers Date of Admission: 10/17/20 16:15 Date of Discharge: October 18, 2020 Attending Provider at Admission: Moris Hernández MD Attending Provider at Discharge: Moris Hernández MD Primary Care Provider: Olesya Flores MD Diagnoses at Discharge Discharge Diagnosis (1) Bladder cancer: Status: Acute Qualifiers: Bladder location: posterior wall Qualified Code(s): C67.4 - Malignant neoplasm of posterior wall of bladder Reason for Visit Reason for Visit: cystoscopy Hospital Course Hospital Course He was admitted on the day of procedure 10/17/2020. Was found to have a papillary lesion consistent with well differentiated TCCA measuring about 3 cm. It was located proximal to the right ureteral orifice on the posterior floor and was completely resected. Deep sampling into the muscle was also conducted as a separate specimen Maintained in the hospital overnight on observation status with Caal catheter. On POD #1, 40 mg of MITOMYCIN was instilled into the bladder. He held it for about an hour, it was drained, and then voiding trial was successful. No excessive bleeding and good emptying confirmed with bladder scan. Discharge home on the morning of postoperative day #1 in stable condition. PLANS: 1. Call for pathology report next week. We will speak with Maya Huynh 2. Follow-up in 2 months for surveillance cystoscopy #1. 3. Reviewed postoperative restrictions and limitations and expectations in detail with the patient before discharge. Physical Exam Const: COMMON NORMALS: no acute distress, alert and well nourished GENERAL APPEARANCE: well kempt and well developed ORIENTATION/CONSCIOUSNESS: not confused HENMT: COMMON NORMALS: normocephalic and atraumatic HEAD & SCALP: normocephalic and atraumatic Neck/C-Spine: COMMON NORMALS: full ROM Resp: COMMON NORMALS: normal respiratory effort EFFORT & INSPECTION: No labored and No Actively coughing GI: COMMON NORMALS: Soft to palpation and non-tender PALPATION: Yes Soft to palpation : MALE GROIN/PERINEUM EXAM: No ecchymosis and No hernia PENIS: normal penis MEATUS: meatus normal, no meatla discharge and No Blood at meatus present Neuro: COMMON NORMALS: no focal motor deficits SENSORIUM/ORIENTATION: Yes alert Psych: COMMON NORMALS: mental status grossly normal APPEARANCE: Yes grossly normal and Yes well kempt ATTITUDE: Yes calm and Yes engaged Skin: COMMON NORMALS: no rashes or lesions noted and no jaundice GENERAL SKIN EXAM: no rashes or lesions noted Urinary Catheter Management^: F: Cath Placed During This Visit: yes Reason for Continuing Indwelling Catheter: Acute Urinary Retention or Obstruction Urinary Catheter Date of Insertion: 10/17/20 Urinary Catheter Time of Insertion: 16:25 Discharge Data Data Completed and Pending: Completed Studies During Hospitalization Category Date Time Status XR chest 2V* [id number] 6 Routine Exams 10/17/20 14:54 Completed Pending at discharge Category Date Time Status Comprehensive Met abolic Panel Routi ne Lab 10/17/20 16:26 Ordered Pathology: Surgic al [PTH] Routine Pth 10/17/20 16:47 Ordered Labs from last 24 hours 10/17/20 10/17/20 10/17/20 18:00 15:19 15:19 WBC 6.0 RBC 5.24 Hgb 15.8 Hct 47.7 MCV 91.0 MCH 30.2 MCHC 33.1 RDW 12.6 Plt Count 171 MPV 10.0 Neut % (Auto) 57.5 Lymph % (Auto) 30.3 [place] % (Auto) 9.0 Eos % (Auto) 2.3 Baso % (Auto) 0.7 Neut # (Auto) 3.46 Lymph # (Auto) 1.8 [place] # (Auto) 0.5 Eos # (Auto) 0.1 Baso # (Auto) 0.0 Nucleated RBC % (a uto) 0 Nucleated RBCs # 0.0 Sodium Cancelled Potassium Cancelled Chloride Cancelled Carbon Dioxide Cancelled Anion Gap Cancelled BUN Cancelled Creatinine Cancelled GFR Calculation Cancelled Glucose Cancelled POC Glucose 80 Calculated Osmolal ity Cancelled Calcium Cancelled Total Bilirubin Cancelled AST Cancelled ALT Cancelled Alkaline Phosphata se Cancelled Total Protein Cancelled Albumin Cancelled Globulin Cancelled Vitals: Last Vital Signs Temp 97.9 F 10/18/20 05:00 Pulse 66 10/18/20 05:00 Resp 17 10/18/20 05:00 BP 112/60 10/18/20 05:00 Pulse Ox 95 10/18/20 05:00 Discharge Plan Discharge Patient Disposition: Home Condition: Stable Prescriptions: Continued Ultra CoQ10 75 mg capsule 100 mg PO BID RF: 0 cholecalciferol (vitamin D3) 25 mcg (1,000 unit) capsule 25 mcg PO DAILY RF: 0 fluticasone propionate 50 mcg/actuation spray,suspension See Rx Instructions .ROUTE .COMPLEX Qty: 16 RF: 2 atorvastatin 40 mg tablet 40 mg PO DAILY 30 Days Qty: 30 RF: 2 acetaminophen [Tylenol] 325 mg Tablet 325 mg PO QID PRN (Reason: Pain) RF: 0 Vitamin D2 See Rx Instructions .ROUTE .COMPLEX RF: 0 Held aspirin [Adult Low Dose Aspirin] 81 mg tablet,delayed release (DR/EC) 81 mg PO DAILY RF: 0 Hold Instructions: Resume on 10/25/20. Discharge Orders: Discharge Order (Routine); Ordered 10/18/20 Ordered By: Moris Hernández Referrals: Moris Hernández MD [Physician] - 12/19/20 8:15 am (Cystoscopy. Call next week for pathology report. Talk to Maya Huynh.[phone]) Discharge Diet: Usual diet Discharge Activity: Limit activity as instructed Patient Instructions: Kidney Stones (GEN), Ear Foreign Body (GEN), Bladder Cancer (GEN), Actinic Keratosis (GEN) Activity Restrictions/Additional Instructions: 1. No lifting >10 pounds for 2 to 3 weeks. 2. It is normal to have increased urgency and frequency postoperatively. They should get better daily. 3. It is also normal to see some blood in the urine intermittently. Please call for excessive bleeding. 4. If you have any concerns please let me know as soon as possible. I will be out of town from 10/21/2020 to 10/31/2020. Please contact my office if you have any issues during that time. Maya Huynh my nurse practitioner can help. 5. Call next week for pathology report. Maya Huynh will be able to go over that with you. Discharge Attestations Time Spent in Discharge Care*: greater than 30 min Quality Metrics Clinical Quality Measures During this hospital stay, did patient experience: None Coding Level of Care Code Acute Engineering Technical Analyst for Chg Fwd Exam Comprehensive Diagnoses Bladder cancer C67.4 Bladder location: posterior wall Time Spent (min) 35
[2020-10-18] MEDS: cetylpyridinium Lozenge 1 EACH MUCOUS MEM (07:45)
[2020-10-18 08:00] VITALS: BP 107/65; PULSE 63; RESP 16; TEMP 36.4; O2SAT 99
[2020-10-18] MEDS: atorvastatin 40 mg Tablet PO (10:29)
[2020-10-18 11:02] VITALS: BP 107/65; PULSE 63; RESP 16; TEMP 36.4; O2SAT 99
== END 2020-10-18 10:50 | disposition home or self-care (01) ==
LOC: MEDSURG 16:15
PROVIDERS: Admitting Provider Urology; PCP Family Medicine; Visit Provider Urology
PROC: 0TJB8ZZ Inspection of Bladder, Via Natural or Artificial Opening Endoscopic (ICD-10-PCS; CPT 52000; principal; 2020-10-17 14:00)
PROC: 0TBB8ZZ Excision of Bladder, Via Natural or Artificial Opening Endoscopic (ICD-10-PCS; CPT 51720; 2020-10-17 14:00)
DX: C67.4 Malignant neoplasm of posterior wall of bladder (principal); J44.9 Chronic obstructive pulmonary disease, unspecified; F41.9 Anxiety disorder, unspecified; E78.5 Hyperlipidemia, unspecified; G47.33 Obstructive sleep apnea (adult) (pediatric); Z87.891 Personal history of nicotine dependence; Z82.49 Family history of ischemic heart disease and other diseases of the circulatory system; Z83.3 Family history of diabetes mellitus; Z82.3 Family history of stroke
CPT/HCPCS: 51720; 52235; 12345; 36415; 36416; 71046; 82962; 85025; 88305; 93005; G0378; J0690; J1100; J2405; J2704; J3010; J3490; J7030; J9280

== ENCOUNTER → 2020-12-19 08:23 | Outpatient (BNVA) | payer MEDICARE, OTHER, SELFPAY | PROVIDERS: PCP Family Medicine; Visit Provider Urology | DX: N20.2 Calculus of kidney with calculus of ureter (principal); C67.4 Malignant neoplasm of posterior wall of bladder | CPT/HCPCS: 81003 ==

== ENCOUNTER → 2021-01-16 09:28 | Outpatient (BNVA) | payer MEDICARE, OTHER, SELFPAY | PROVIDERS: PCP Family Medicine; Visit Provider Internal Medicine Interventional Cardiology | DX: E78.5 Hyperlipidemia, unspecified (principal) | CPT/HCPCS: 80061 ==

== ENCOUNTER → 2021-03-21 08:29 | Outpatient (BNVA) | payer MEDICARE, OTHER, SELFPAY | PROVIDERS: PCP Family Medicine; Visit Provider Urology | DX: C67.4 Malignant neoplasm of posterior wall of bladder (principal) | CPT/HCPCS: 81003 ==

== ENCOUNTER 2021-05-22 12:36 | Outpatient (CLI) | payer MEDICARE, OTHER, SELFPAY ==
--- NOTE | 2021-05-22 13:00 | MR_ITS ---
WS: [id number] MRI LUMBAR SPINE NONCONTRAST TECHNIQUE: Sagittal T1, T2 and STIR imaging. Axial T1 and T2 imaging. CLINICAL INFORMATION: M54.5 - Low back pain COMPARISON: FINDINGS: Mild lumbar curve. No acute compression. No high-grade central canal stenosis. L1-L2: Normal. L2-L3: Mild annular bulging. Mild right and no significant left foraminal narrowing. Mild facet arthr opathy. L3-L4: Mild annular bulging with slight effacement of the ventral thecal sac. Mild facet arthropathy. Mild bilateral foraminal narrowing. L4-L5: Mild annular bulging with slight effacement of the ventral thecal sac. Left eccentric disc bul ging with mild to moderate left and mild right foraminal narrowing. Narrowing of the left subarticula r recess. L5-S1: No significant disc bulging. Spinal canal and foramen are patent. Visualized pelvic bony structures: Normal. Paravertebral soft tissues: Normal. MR/MR lumbar spine wo con* [id number] IMPRESSION: 1. Mild lumbar curve. No acute compression. No high-grade central canal stenos is. 2. Left eccentric disc bulging L4-5 with impingement on the left subarticular recess and traversing left L5 nerve root. 3. Mild to moderate left L4-5 foraminal narrowing. 4. Mild facet arthropathy L3-L4 and L4-L5.
== END 2021-05-22 12:37 | disposition home or self-care (01) ==
LOC: RADSHAW 12:38
PROVIDERS: PCP Family Medicine; Visit Provider Nurse Practitioner Family
DX: M47.816 Spondylosis without myelopathy or radiculopathy, lumbar region (principal); M51.26 Other intervertebral disc displacement, lumbar region
CPT/HCPCS: 72148

== ENCOUNTER → 2021-06-21 08:29 | Outpatient (BNVA) | payer MEDICARE, OTHER, SELFPAY | PROVIDERS: PCP Family Medicine; Visit Provider Urology | DX: C67.4 Malignant neoplasm of posterior wall of bladder (principal); N20.2 Calculus of kidney with calculus of ureter | CPT/HCPCS: 81003 ==

== ENCOUNTER 2021-08-31 08:04 | Outpatient (CLI) | payer MEDICARE, OTHER, SELFPAY ==
--- NOTE | 2021-08-31 08:15 | XR_ITS ---
WS: [id number] KUB, AP view, 08/31/2021 Clinical Data: UROLITHIASIS Comparison: KUB, 10/11/2020. Findings: No abnormal intraabdominal masses or calcifications are seen. There is no dilatated small bowel or ev idence of obstruction. There is a moderate amount of fecal material in the colon. The bladder is full. There are phleboliths in the true pelvis. XR/XR KUB [id number] Impression: Negative KUB.
== END 2021-08-31 08:05 | disposition home or self-care (01) ==
LOC: RAD 08:09
PROVIDERS: PCP Family Medicine; Visit Provider Urology
DX: N20.9 Urinary calculus, unspecified (principal)
CPT/HCPCS: 74018; 81003

== ENCOUNTER → 2021-10-03 13:03 | Outpatient (BNVA) | payer MEDICARE, OTHER, SELFPAY | PROVIDERS: PCP Family Medicine; Visit Provider Orthopaedic Surgery | DX: M54.50 Low back pain, unspecified (principal); G89.29 Other chronic pain; M99.53 Intervertebral disc stenosis of neural canal of lumbar region | CPT/HCPCS: 72110 ==

== ENCOUNTER → 2021-11-30 09:11 | Outpatient (BNVA) | payer MEDICARE, OTHER, SELFPAY | PROVIDERS: PCP Family Medicine; Visit Provider Urology | DX: C67.4 Malignant neoplasm of posterior wall of bladder (principal) | CPT/HCPCS: 81003 ==

== ENCOUNTER → 2022-02-27 09:00 | Outpatient (BNVA) | payer MEDICARE, OTHER, SELFPAY | PROVIDERS: PCP Family Medicine; Visit Provider Urology | DX: C67.9 Malignant neoplasm of bladder, unspecified (principal); C67.4 Malignant neoplasm of posterior wall of bladder; N20.2 Calculus of kidney with calculus of ureter | CPT/HCPCS: 52000; 81003 ==

== ENCOUNTER → 2022-07-20 14:30 | Outpatient (BNVA) | payer MEDICARE, OTHER, SELFPAY | PROVIDERS: PCP Family Medicine; Visit Provider Nurse Practitioner Family | DX: R53.1 Weakness (principal); Z79.899 Other long term (current) drug therapy | CPT/HCPCS: 80053; 82607; 83735; 84443; 85025 ==

== ENCOUNTER 2022-08-14 13:53 | Outpatient (CLI) | payer MEDICARE, OTHER, SELFPAY ==
--- NOTE | 2022-08-14 14:14 | CT_ITS ---
WS: [id number] CT CHEST WITH INTRAVENOUS CONTRAST HISTORY: DYSPNEA ON EXACERBATION TECHNIQUE: Contiguous 5 mm axial imaging performed on the thorax. Coronal and sagittal reformats are submitted. All CT scans at [facility] use at least one of these dose optimization techniques: automated exposure control; mA and/or kV adjustment per patient size (includes targeted exams where dose is matched to clinical indication); or iterative reconstruction. CONTRAST: Omnipaque 350; 95 mL IV. DLP: 614.10 mGy.cm COMPARISON: 04/30/2020 Lungs and central airway: Mild interstitial thickening in the periphery of both lungs. No mass or nod ule. No pneumonia. Benign calcifications along the minor fissure. Pleura: Normal. No pleural effusion. Heart and pericardium: Normal size heart with no pericardial effusion. Mediastinum and annalee: No enlarged lymph nodes. Densely calcified RIGHT paratracheal lymph nodes. Smal l air pocket along the posterior RIGHT lateral upper mediastinum may be related to the esophagus or t rachea. No change since the prior study. Vessels: Mild atherosclerosis aorta. Normal pulmonary artery. Chest wall and lower neck: No soft tissue masses. Upper abdomen: Stomach is distended with fluid. No adrenal mass. Visualized liver is negative. Spleni c granulomata. Osseous structures: No destructive process. CT/CT chest w con* [id number] IMPRESSION: 1. Chronic interstitial lung disease probably related to smoking. 2. No mass or nodule. 3. Prior granulomatous disease. 4. No acute pneumonia or consolidation. 5. Mild atherosclerosis aorta.
[2022-08-14] MEDS: iohexol 350 mg/mL 100 mL Btl IV (14:39)
== END 2022-08-14 13:54 | disposition home or self-care (01) ==
LOC: RAD 13:55
PROVIDERS: PCP Family Medicine; Visit Provider Electrodiagnostic Medicine
DX: R06.09 Other forms of dyspnea (principal); J84.9 Interstitial pulmonary disease, unspecified; I70.0 Atherosclerosis of aorta
CPT/HCPCS: 71260

== ENCOUNTER → 2022-08-28 09:13 | Outpatient (BNVA) | payer MEDICARE, OTHER, SELFPAY | PROVIDERS: PCP Family Medicine; Visit Provider Urology | DX: C67.4 Malignant neoplasm of posterior wall of bladder (principal); R53.83 Other fatigue; R53.1 Weakness; N20.2 Calculus of kidney with calculus of ureter | CPT/HCPCS: 52000; 81003; 99213 ==

== ENCOUNTER 2022-09-04 13:44 | Outpatient (CLI) | payer MEDICARE, OTHER, SELFPAY | END 2022-09-04 13:45 | disposition home or self-care (01) | PROVIDERS: PCP Family Medicine; Visit Provider Electrodiagnostic Medicine | DX: J44.9 Chronic obstructive pulmonary disease, unspecified (principal); R00.0 Tachycardia, unspecified | CPT/HCPCS: 94010; 94726; 94729 ==

== ENCOUNTER 2022-09-18 06:34 | Outpatient (CLI) | payer MEDICARE, OTHER, SELFPAY ==
--- NOTE | 2022-09-18 07:22 | USCV_ITS ---
Andre Roy Age: 72 Gender: M : 1950 Exam Date: 09/18/2022 07:25 Ordering Phys: Robin Peter DO Technologist: Exam Location: [facility] [place] Indication: murmur BP: 113 / 75 HR: Rhythm: Sinus Technical Quality: Adequate MEASUREMENTS (Male / Female) Normal Values 2D ECHO LV Diastolic Diameter PLAX 3.8 cm 4.2 - 5.9 / 3.9 - 5.3 cm LV Systolic Diameter PLAX 2.6 cm IVS Diastolic Thickness 1.1 cm 0.6 - 1.0 / 0.6 - 0.9 cm IVS Systolic Thickness 1.4 cm LVPW Diastolic Thickness 1.2 cm 0.6 - 1.0 / 0.6 - 0.9 cm LVPW Systolic Thickness 1.1 cm LVOT Diameter 2.0 cm LV Ejection Fraction 2D Teich 59.4 % LV Ejection Fraction MOD 2C 54.1 % LV Ejection Fraction 2C AL 57.0 % LA Diameter 3.7 cm IVC Diameter 1.6 cm M-MODE Aortic Annulus Diameter 3.6 cm LA Ao Ratio MM 1.2 MV E Point Septal Separation 0.7 cm DOPPLER AV Peak Velocity 195.0 cm/s LVOT Peak Velocity 98.0 cm/s AV Area Cont Eq vti 1.9 cm squared AV Area Cont Eq pk 1.6 cm squared MV Area PHT 5.0 cm squared Mitral E to A Ratio 0.9 MV E' Velocity 53.0 cm/s Mitral E to MV E' Ratio 11.3 Mitral E to LV E' Lateral Ratio 10.5 Mitral E to LV E' Septal Ratio 12.5 TR Peak Velocity 238.0 cm/s TR Peak Gradient 22.7 mmHg Right Atrial Pressure 3.0 mmHg Pulmonary Artery Systolic Pressu 25.7 mmHg FINDINGS Left Ventricle Left ventricle is normal in size. LV systolic function is normal with EF 55 to 60%. No regional wall motion abnormalities are seen. Grade 1 diastolic dysfunction Right Ventricle Normal in size and function Right Atrium Normal in size Left Atrium Normal in size Mitral Valve Moderate mitral annular calcification is seen. Trace mitral regurgitation Aortic Valve Aortic valve is moderately thickened and calcified. No significant stenosis or regurgitation seen. Mean gradient across aortic valve is 6.9mmHg Tricuspid Valve Trace tricuspid regurgitation. Pulmonary artery systolic pressure is normal Pulmonic Valve Not well visualized Pericardium Normal Aorta Normal in size IVC Appears to be normal. RA pressure is normal CONCLUSIONS LV systolic function is normal with EF 55 to 60%. Grade 1 diastolic dysfunction Trace mitral regurgitation. Moderate mitral annular calcification is seen. Aortic valve is thickened and calcified. No significant stenosis or regurgitation Trace tricuspid regurgitation RV pressure is normal. Compared to prior echocardiogram from 2019, no significant changes are seen Joshua Bañuelos MD (Electronically Signed) Final Date: 01 October 2022 14:18 S
== END 2022-09-18 06:35 | disposition home or self-care (01) ==
LOC: RAD 06:35
PROVIDERS: PCP Family Medicine; Visit Provider Electrodiagnostic Medicine
DX: R01.1 Cardiac murmur, unspecified (principal); I08.3 Combined rheumatic disorders of mitral, aortic and tricuspid valves
CPT/HCPCS: 93306

== ENCOUNTER → 2022-10-02 15:01 | Outpatient (BNVA) | payer MEDICARE, OTHER, SELFPAY | PROVIDERS: PCP Electrodiagnostic Medicine; Visit Provider Internal Medicine Cardiovascular Disease | DX: R00.0 Tachycardia, unspecified (principal); R53.83 Other fatigue; E78.5 Hyperlipidemia, unspecified; R06.09 Other forms of dyspnea; I10 Essential (primary) hypertension; Z87.891 Personal history of nicotine dependence | CPT/HCPCS: 93005; 99204 ==

== ENCOUNTER 2022-10-09 09:24 | Outpatient (CLI) | payer MEDICARE, OTHER, SELFPAY ==
--- NOTE | 2022-10-09 09:58 | ECG_ITS ---
[facility] Test Date: 2022-10-09 Pat Name: Andre Roy Department: Room: Gender: Male Wood Sawyer: Amber Potts : 1950 Requested By: Rafa Smith Order Number: [id number] Radha MD: Rafa Smith M.D. Interpretive Statements NAME OF STUDY: EXERCISE SESTAMIBI STRESS TEST INDICATION: Shortness of Breath, PROCEDURE: The baseline electrocardiogram showed normal sinus rhythm with normal ST-Ts. At the baseline, the patient's blood pressure was 133/76 mm Hg with a heart rate of 77. The patient exercised for 6 minutes and 40 seconds on a standard Rashi protocol. Patient attained a maximum heart rate of 144 beats per minute(99% of the maximum predicted heart rate) with a blood pressure at the peak exercise of 150/69 mm Hg. The EKG at the peak exercise revealed no significant changes. Patient did not have any chest pain or any significant arrhythmis with the exercise Sestamibi was injected 1 minute prior to the peak exercise During the recovery phase, there were no new changes. Blood pressure at the end of the recovery phase was 132/82 mm Hg with a heart rate of 94 per minute. CONCLUSION: 1. No significant EKG changes with the [treadmill exercise 2. No exercise-induced chest pain or cardiac arrhythmia 3. Fair exercise tolerance, attained a maximum of 10.2 METs 4. Sestamibi/Sestamibi perfusion results pending; see separate report. Electronically Signed On 10-16-2022 18:13:14 HOSPICE SOCIAL WORKER by Rafa Smith M.D. [email or web address]
[2022-10-09 09:59] VITALS: BMI 22.8
--- NOTE | 2022-10-09 09:59 | NMCV_ITS ---
NM trevor perf SPECT r/s* [id number] Andre Roy Age: 72 Gender: M : 1950 Exam Date: 10/09/2022 10:51 Ordering Phys: Rafa Smith MD ([email or web address]) Technologist: GIL Castelan Exam Location: [facility] Indications: CORONARY ANGIOPLASTY STATUS STRESS TEST Please see separate stress test report in [facility] for full findings IMAGE PROTOCOL Rest/Stress 1 Exercise Day Radiopharmaceutical Dose (mCi) Administration Site Administered by Rest: Tc-99m 10.8 IV GIL Doherty Sestamibi Stress:Tc-99m 32.2 IV GIL Doherty Sestamiashley Rest: 09-Oct-2022 60 Discovery 630 Stress: 09-Oct-2022 30 Discovery 630 Radiopharmaceutical was injected at 90 % maximum heart rate. Images obtained in supine and prone position. SPECT RESULTS Technical Quality: Excellent Raw Data Analysis: Normal Image Corrections: No attenuation or motion correction applied Summed Stress Score: 0 Summed Rest Score: 1 Summed Difference Score: 0 PERFUSION FINDINGS Fairly uniform myocardial tracer uptake with no significant perfusion normalities FUNCTIONAL RESULTS (calculated via Gated SPECT) Stress Image LV EF (%): 88 Stress EDV (mL):72 TID: 0.95 Stress ESV (mL):9 FUNCTIONAL FINDINGS: 1. Unremarkable Myocardial perfusion imaging. 2. Normal LV ejection fraction of 88%. 3. LV wall motion analysis revealing no gross wall motion abnormalities. 4. Normal LV volume. Low probability for coronary ischemia, based on the above findings IMPRESSIONS Dr Rafa Smith MD FACC (Electronically Signed) Final Date: 10 October 2022 19:33 S
[2022-10-09 11:30] VITALS: BP 132/82; PULSE 98
== END 2022-10-09 09:25 | disposition home or self-care (01) ==
LOC: CDL 09:27
PROVIDERS: PCP Electrodiagnostic Medicine; Visit Provider Internal Medicine Cardiovascular Disease
DX: R00.0 Tachycardia, unspecified (principal); R53.83 Other fatigue; Z98.61 Coronary angioplasty status; R06.02 Shortness of breath
CPT/HCPCS: 36415; 78452; 93017; A9500

== ENCOUNTER 2022-12-03 20:00 | Outpatient (CLI) | payer MEDICARE, OTHER, SELFPAY | END 2022-12-03 20:01 | disposition home or self-care (01) | LOC: SLEEP 12-04 05:48 | PROVIDERS: PCP Electrodiagnostic Medicine; Visit Provider Internal Medicine Cardiovascular Disease | DX: R06.09 Other forms of dyspnea (principal); R53.83 Other fatigue; Z86.69 Personal history of other diseases of the nervous system and sense organs; G47.33 Obstructive sleep apnea (adult) (pediatric) | CPT/HCPCS: 95811 ==

== ENCOUNTER → 2023-01-03 13:38 | Outpatient (BNVA) | payer MEDICARE, OTHER, SELFPAY | PROVIDERS: PCP Electrodiagnostic Medicine; Visit Provider Internal Medicine Cardiovascular Disease | DX: I10 Essential (primary) hypertension (principal); E78.5 Hyperlipidemia, unspecified; R06.09 Other forms of dyspnea; R53.1 Weakness; Z87.891 Personal history of nicotine dependence; Z79.82 Long term (current) use of aspirin | CPT/HCPCS: 99214 ==

== ENCOUNTER → 2023-01-31 08:24 | Outpatient (BNVA) | payer MEDICARE, OTHER, SELFPAY | PROVIDERS: PCP Electrodiagnostic Medicine; Visit Provider Internal Medicine Pulmonary Disease | DX: J98.4 Other disorders of lung (principal); U07.1 COVID-19; R06.09 Other forms of dyspnea; G47.30 Sleep apnea, unspecified; Z79.899 Other long term (current) drug therapy | CPT/HCPCS: 36415; 85651; 86140; 86160; 86162; 86200; 86235; 86255; 86376; 86431; 99204 ==

== ENCOUNTER 2023-02-19 09:34 | Outpatient (CLI) | payer MEDICARE, OTHER, SELFPAY ==
[2023-02-19 10:15] VITALS: BP 136/84; BP 136/91
== END 2023-02-19 09:35 | disposition home or self-care (01) ==
LOC: RT 09:37
PROVIDERS: PCP Electrodiagnostic Medicine; Visit Provider Internal Medicine Pulmonary Disease
DX: U07.1 COVID-19 (principal); J98.4 Other disorders of lung
CPT/HCPCS: 94010; 94618; 94726; 94729

== ENCOUNTER → 2023-02-26 08:41 | Outpatient (BNVA) | payer MEDICARE, OTHER, SELFPAY | PROVIDERS: PCP Electrodiagnostic Medicine; Visit Provider Urology | DX: C67.4 Malignant neoplasm of posterior wall of bladder (principal) | CPT/HCPCS: 52000; 81003; 88112; 99213 ==

== ENCOUNTER 2023-04-16 21:14 | Emergency (ER) | payer MEDICARE, OTHER, SELFPAY ==
[2023-04-16] VITALS (7 sets, daily range): BP systolic 109–140; BP diastolic 66–86; PULSE 83–95; RESP 18–20; TEMP 37.3–39.1; O2SAT 94–96; BMI 23.6
--- NOTE | 2023-04-16 21:35 | ED_ITS ---
HPI - COVID General: Chief Complaint: COVID symptoms Stated Complaint: Possible Covid + Time Seen by Provider: 04/16/23 21:34 History of Present Illness: 72-year-old male patient comes in today with illness starting yesterday. Patient reports cold chills and a low-grade fever yesterday. Patient just returned from a cruise 2 days ago. Patient did a home COVID test that showed positive. Patient appears mildly unwell but not toxic. Patient also reports some low back pain secondary to a fall off a ladder 2 weeks ago. Patient is scheduled to have follow-up appointment for further evaluation and treatment of his back pain. No respiratory difficulty is noted. Patient reports mainly body aches and fever. Patient denies any vomiting or diarrhea. 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 Possibly focus of lamina propria invasion on deep biopsy but not clear. Location: Right lateral bladder wall lateral to ureteral orifice. Placed on surveillance program. No recurrence to date Dyspnea on exertion Generalized weakness Hyperlipidemia Left ureteral calculus Mitral regurgitation Renal colic on left side Sleep apnea obstructive Tachycardia Urolithiasis Surgical History No history of previous surgery Family History Mother , 80 Diabetes CAD (coronary artery disease) Stroke Father , 80 CAD (coronary artery disease) Stroke Hypertension Cancer bone Chronic kidney disease (CKD) Sister CAD (coronary artery disease) Brother CAD (coronary artery disease) Denies family history of Clotting disorder Dementia Suicide Anesthesia complication Bleeding disorder Lung disease Social History Smoking and tobacco status: former smoker Second hand smoke exposure: No Alcohol intake: never Substance/Drug Use: never Lives independently: Yes Household members: spouse Housing: House Marital status: Current occupational status: 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 Current gender identity: Male Special christina needs: No Physical Exam Const: COMMON NORMALS: alert HENMT: HEAD & SCALP: normal to inspection Neck/C-Spine: COMMON NORMALS: full ROM Chest: COMMONS NORMALS: normal palpation of entire chest wall Resp: COMMON NORMALS: normal respiratory effort and clear to auscultation bilaterally AUSCULTATION: clear to auscultation bilaterally Cardio: COMMON NORMALS: regular rate and regular rhythm RATE: regular rate RHYTHM: regular rhythm GI: COMMON NORMALS: non-tender Back/Pelvis: LUMBAR SPINE/LOWER BACK: Yes lumbar spinal tenderness and Yes paraspinal muscle tenderness Extremity: COMMON NORMALS: no pedal edema Neuro: SENSORIUM/ORIENTATION: Yes alert Skin: COMMON NORMALS: turgor normal GENERAL SKIN EXAM: turgor normal Course Vital Signs: Vital signs: Vital Signs Temperature 102.4 F H 04/16/23 21:23 Pulse Rate 95 04/16/23 21:23 Respiratory Rate 18 04/16/23 21:28 Blood Pressure 140/71 04/16/23 21:28 Pulse Oximetry 96 04/16/23 21:39 Oxygen Delivery Me thod Room Air 04/16/23 21:39 MDM - COVID Medical Decision Making Patient comes in today for complaints of illness x2 days. On exam respirations are even lungs are clear to auscultation. Posterior pharynx is pink and moist. Vital signs are normal except for some elevation in temperature of 102. Patient appears nontoxic. Differential diagnosis includes but not limited to pneumonia, viral syndrome, COVID-19, urinary tract infection, dehydration. CBC and CMP were unremarkable. Patient was given a gram of acetaminophen for his fever. Temperature came down from 102-99. Urinalysis was not noticeable for signs of infection. Respiratory 2 panel was sent to lab. Patient did have a positive home COVID-19 test. We will go ahead and start patient on Paxlovid antiviral treatment for COVID. Patient was instructed on hydration and monitoring for signs of respiratory failure or other complications secondary to COVID. Patient stated understanding and agreed to plan. Lab Data 04/16/23 22:15 04/16/23 22:15 Radiology Impressions Chest X-Ray 04/16/23 21:35 IMPRESSION: 1. Negative for infiltrate 2. Right paratracheal calcified lymph nodes. Laboratory Results WBC 7.9 10^3/uL (4.0-10.0) 04/16/23 22:15 RBC 4.47 10^6/uL (4.1-5.3) 04/16/23 22:15 Hgb 13.6 g/dL (11.7-16.6) 04/16/23 22:15 Hct 40.5 % (42.0-52.0) L 04/16/23 22:15 MCV 90.6 fl (80-94) 04/16/23 22:15 MCH 30.4 pg (28.0-34.0) 04/16/23 22:15 MCHC 33.6 g/dL (30.0-36.0) 04/16/23 22:15 RDW 12.3 % (12.1-15.1) 04/16/23 22:15 Plt Count 130 10^3/cmm (130-400) 04/16/23 22:15 MPV 9.1 fL (7.4-10.4) 04/16/23 22:15 Neut % (Auto) 80.8 % 04/16/23 22:15 Lymph % (Auto) 7.0 % 04/16/23 22:15 [place] % (Auto) 11.0 % 04/16/23 22:15 Eos % (Auto) 0.5 % 04/16/23 22:15 Baso % (Auto) 0.4 % 04/16/23 22:15 Neut # (Auto) 6.40 10^3/uL (1.8-7.7) 04/16/23 22:15 Lymph # (Auto) 0.6 10^3/uL (0.8-4.8) L 04/16/23 22:15 [place] # (Auto) 0.9 10^3/uL (0.2-0.9) 04/16/23 22:15 Eos # (Auto) 0.0 10^3/uL (0.0-0.8) 04/16/23 22:15 Baso # (Auto) 0.0 10^3/uL (0.0-0.1) 04/16/23 22:15 Nucleated RBC % (auto) 0 % 04/16/23 22:15 Nucleated RBCs # 0.0 /100WBC 04/16/23 22:15 Sodium 135 mmol/L (136-145) L 04/16/23 22:15 Potassium 4.0 mmol/L (3.5-5.1) 04/16/23 22:15 Chloride 103 mmol/L (98-107) 04/16/23 22:15 Carbon Dioxide 22 mmol/L (22-29) 04/16/23 22:15 Anion Gap 14.0 (5-19) 04/16/23 22:15 BUN 18 mg/dL (8-23) 04/16/23 22:15 Creatinine 0.9 mg/dL (0.7-1.2) 04/16/23 22:15 GFR Calculation Not Reportable 04/16/23 22:15 Glucose 110 mg/dL (65-115) 04/16/23 22:15 Calculated Osmolality 283 mOsm/kg (285-295) L 04/16/23 22:15 Calcium 8.7 mg/dL (8.5-10.5) 04/16/23 22:15 Total Bilirubin 0.6 mg/dL (0.15-1.2) 04/16/23 22:15 AST 19 U/L (0-40) 04/16/23 22:15 ALT 22 U/L (0-41) 04/16/23 22:15 Alkaline Phosphatase 90 U/L (40-130) 04/16/23 22:15 Total Protein 6.3 g/dL (6.6-8.7) L 04/16/23 22:15 Albumin 3.5 g/dL (3.5-5.2) 04/16/23 22:15 Globulin 2.8 g/dL (1.3-4.6) 04/16/23 22:15 Urine Color Yellow (Yellow) 04/16/23 22:53 Urine Appearance Clear (CLEAR) 04/16/23 22:53 Urine pH 5 (5-7) 04/16/23 22:53 Ur Specific [place] 1.025 (1.005-1.030) 04/16/23 22:53 Urine Protein Neg (Negative) 04/16/23 22:53 Urine Glucose (UA) Norm (Normal) 04/16/23 22:53 Urine Ketones 1+ (Negative) H 04/16/23 22:53 Urine Blood 2+ (Negative) H 04/16/23 22:53 Urine Nitrate Negative (Negative) 04/16/23 22:53 Urine Bilirubin Neg (Negative) 04/16/23 22:53 Urine Urobilinogen Norm mg/dL (Negative) 04/16/23 22:53 Ur Leukocyte Esterase Negative (Negative) 04/16/23 22:53 Urine RBC 0-4 /hpf (0-2) H 04/16/23 22:53 Urine WBC 0-4 /hpf (0-5) H 04/16/23 22:53 Ur Squamous Epith Cells 0-4 /hpf (0-5) H 04/16/23 22:53 Amorphous Sediment Not Reportable 04/16/23 22:53 Urine Bacteria Trace /hpf (NONE) 04/16/23 22:53 Urine Mucus 2+ /hpf 04/16/23 22:53 SARS-CoV-2 RNA (RT-PCR) Not detected (NOT DETECTED) 06/16/20 1 0:53 Nasal/Oral Coronavirus 2019 PCR Not detected 10/11/20 09:37 Discharge Plan Discharge Patient Disposition: Home Clinical Impression: COVID-19 Condition: Stable Prescriptions: New Paxlovid (EUA) 300 mg (150 mg x 2)-100 mg tablets,dose pack See Rx Instructions .ROUTE .COMPLEX Qty: 30 0RF Rx Instructions: take TWO 150 mg tablets of nirmatrelvir with ONE 100 mg tablet of ritonavir twice daily for 5 days No Action Metamucil 3.4 gram/5.4 gram powder 1 tbsp PO DAILY Rx Instructions: mix into at least 8 oz of water or juice before administering docusate sodium 100 mg capsule 100 mg PO DAILY aspirin [Adult Low Dose Aspirin] 81 mg tablet,delayed release (DR/EC) 81 mg PO DAILY Hold Instructions: Resume on 10/25/20. cholecalciferol (vitamin D3) 25 mcg (1,000 unit) capsule 25 mcg PO DAILY fluticasone propionate [Flonase Allergy Relief] 50 mcg/actuation spray,suspension 1 spray intranasal DAILY Rx Instructions: administer into each nostril multivitamin [Daily Multi-Vitamin] Tablet 1 tab PO DAILY amlodipine 2.5 mg tablet See Rx Instructions .ROUTE .COMPLEX Qty: 30 5RF Dose Instruction: TAKE ONE TABLET BY MOUTH DAILY FOR Hypertension Rx Instructions: TAKE ONE TABLET BY MOUTH DAILY FOR Hypertension acetaminophen [Tylenol] 325 mg Tablet 325 mg PO QID PRN (Reason: Pain) Discharge Orders: Discharge ED (Routine); Ordered 04/16/23 Ordered By: Maurisio Krishna Referrals: Robin Peter, DO [Primary Care Provider] - Discharge Diet: Usual diet Discharge Activity: Increase activity as tolerated Patient Instructions: COVID-19 (Coronavirus Disease 2019) (ED), How to Recover from COVID-19 at Home (ED) Activity Restrictions/Additional Instructions: Drink plenty of water and fluids. Take antibiotics as directed. Follow-up with primary care for further evaluation and treatment. Return to ER for new concerns or worsening symptoms such as inability to hold fluids down, li ghtheadedness, chest pain, shortness of breath. 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
--- NOTE | 2023-04-16 21:35 | XRR_ITS ---
PROCEDURE INFORMATION: Exam: XR Chest Exam date and time: 04/16/2023 9:45 PM Age: 72 years old Clinical indication: Cough; Additional info: Covid TECHNIQUE: Imaging protocol: Radiologic exam of the chest. Views: 1 view. COMPARISON: CT chest w con* [id number] 08/14/2022 2:33 PM FINDINGS: Lungs: Unremarkable. No consolidation. Pleural spaces: Unremarkable. No pleural effusion. No pneumothorax. Heart/Mediastinum: Right paratracheal calcified lymph nodes. Bones/joints: Unremarkable. XR/XR chest 1V portable [id number] IMPRESSION: 1. Negative for infiltrate 2. Right paratracheal calcified lymph nodes.
[2023-04-16 22:20] LABS: Basophils % 0.4 %; Eosinophils % 0.5 %; Hematocrit 40.5 % (42.0-52.0); Hemoglobin 13.6 g/dL (11.7-16.6); Lymphocytes # 0.6 10^3/uL (0.8-4.8); Mean Corpuscular HGB Conc 33.6 g/dL (30.0-36.0); Mean Corpuscular Hemoglobin 30.4 pg (28.0-34.0); Mean Corpuscular Volume 90.6 fl (80-94); Mean Platelet Volume 9.1 fL (7.4-10.4); Monocytes # 0.9 10^3/uL (0.2-0.9); Neutrophils % 80.8 %; Nucleated Red Blood Cells % 0 %; Platelet Count 130 10^3/cmm (130-400); Red Blood Count 4.47 10^6/uL (4.1-5.3); Red Cell Distribution Width 12.3 % (12.1-15.1); White Blood Count 7.9 10^3/uL (4.0-10.0)
[2023-04-16 22:37] LABS: Alanine Aminotransferase 22 U/L (0-41); Albumin Level 3.5 g/dL (3.5-5.2); Alkaline Phosphatase 90 U/L (40-130); Aspartate Amino Transferase 19 U/L (0-40); Blood Urea Nitrogen 18 mg/dL (8-23); Calcium 8.7 mg/dL (8.5-10.5); Carbon Dioxide 22 mmol/L (22-29); Chloride 103 mmol/L (98-107); Globulin 2.8 g/dL (1.3-4.6); Glucose 110 mg/dL (65-115); Osmolality Calculated 283 mOsm/kg (285-295); Sodium 135 mmol/L (136-145); Total Bilirubin 0.6 mg/dL (0.15-1.2); Total Protein 6.3 g/dL (6.6-8.7)
[2023-04-16] MEDS: acetaminophen 500 mg Tablet 1000 MG PO (22:57)
[2023-04-16 23:05] LABS: Add Urine Microscopic? YES; Bacteria Urine TRACE /hpf; Bilirubin Urine Neg (Negative); Blood Urine 2+ (Negative); Glucose Urine UA Norm (Normal); Ketones Urine 1+ (Negative); Leukocyte Esterase Urine Negative (Negative); Mucus Urine 2+ /hpf; Nitrate Urine Negative (Negative); Protein Urine Neg (Negative); RBC Urine 0-4 /hpf (0-2); Specific Gravity, Urine 1.025 (1.005-1.030); Squamous Epithelial Cell Urine 0-4 /hpf (0-5); Urine Appearance Clear (CLEAR); Urine Color Yellow (Yellow); Urobilinogen Urine Norm (Negative); WBC Urine 0-4 /hpf (0-5); pH Urine 5 (5-7)
[2023-04-16 23:06] LABS: Add Urine Culture? No
[2023-04-17 01:34] LABS: Adenovirus Not Detected (NOT DETECT); Chlamydia Pneumoniae Not Detected (NOT DETECT); Coronavirus 229E,HKU1,NL63,OC4 Not Detected (NOT DETECT); Human Metapneumovirus Not Detected (NOT DETECT); Human Rhinovirus/Enterovirus Not Detected (NOT DETECT); Influenza A Not Detected (NOT DETECT); Influenza A H1 Not Detected (NOT DETECT); Influenza A H1-2009 Not Detected (NOT DETECT); Influenza A H3 Not Detected (NOT DETECT); Influenza B Not Detected (NOT DETECT); Mycoplasma Pneumoniae Not Detected (NOT DETECT); Parainfluenza Virus Type 1 Not Detected (NOT DETECT); Parainfluenza Virus Type 2 Not Detected (NOT DETECT); Parainfluenza Virus Type 3 Not Detected (NOT DETECT); Parainfluenza Virus Type 4 Not Detected (NOT DETECT); Respiratory Syncytial Virus A Not Detected (NOT DETECT); Respiratory Syncytial Virus B Not Detected (NOT DETECT)
[2023-04-17 01:42] LABS: SARS-COV-2 Detected (NOT DETECT)
== END 2023-04-16 23:55 | disposition home or self-care (01) ==
PROVIDERS: Emergency Provider Nurse Practitioner Family; PCP Electrodiagnostic Medicine
DX: U07.1 COVID-19 (principal); Z79.82 Long term (current) use of aspirin; Z87.891 Personal history of nicotine dependence; Z85.51 Personal history of malignant neoplasm of bladder; E78.5 Hyperlipidemia, unspecified
CPT/HCPCS: 71045; 80053; 81001; 85025; 87486; 87581; 87633; 99284

== ENCOUNTER → 2023-05-01 15:06 | Outpatient (BNVA) | payer MEDICARE, OTHER, SELFPAY | PROVIDERS: PCP Electrodiagnostic Medicine; Visit Provider Internal Medicine Pulmonary Disease | DX: J98.4 Other disorders of lung (principal); G47.33 Obstructive sleep apnea (adult) (pediatric); G93.32 Myalgic encephalomyelitis/chronic fatigue syndrome; U09.9 Post COVID-19 condition, unspecified; Z87.891 Personal history of nicotine dependence; C67.9 Malignant neoplasm of bladder, unspecified; Z91.81 History of falling | CPT/HCPCS: 99214 ==

== ENCOUNTER 2023-05-09 06:26 | Outpatient (CLI) | payer MEDICARE, OTHER, SELFPAY ==
--- NOTE | 2023-05-09 13:00 | CT_ITS ---
WS: [id number] CT CHEST CT-HIGH RESOLUTION, NONCONTRAST. HISTORY: Interstitial lung disease. Technique: High-resolution chest CT is performed in inspiration, expiration, supine and prone positio noemy. All CT scans at [facility] use at least one of these dose optimization techniques: automated exposure control; mA and/or kV adjustment per patient size (includes targeted exams where dose is mat ched to clinical indication); or iterative reconstruction. DLP: 883.52 mGy.cm COMPARISON: 08/14/2022 Findings: Very mild hyperexpansion. There is mild interstitial thickening in the periphery predominan tly in the lower lung pozo. No honeycombing or bronchiectasis. No pulmonary mass or nodule. Calcifi cation RIGHT upper lobe. No pericardial or pleural effusions. Mild atherosclerosis aorta. Normal size heart. Several large hilar and mediastinal calcified lymph no rick. No concerning lymphadenopathy. T11 compression fracture 30%. New since 08/14/2022. There is a sm all amount of edema surrounding the vertebral body suggesting this is acute. CT/CT chest wo con [id number] Impression: 1. Mild interstitial thickening is very similar to the prior study from 2021. 2. No honeycombing or bronchiectasis. No mass. 3. T11 acute appearing compression fracture, 30%.
== END 2023-05-09 06:27 | disposition home or self-care (01) ==
PROVIDERS: PCP Electrodiagnostic Medicine; Visit Provider Internal Medicine Pulmonary Disease
DX: J98.4 Other disorders of lung (principal); R06.09 Other forms of dyspnea; U07.1 COVID-19; S22.088A Other fracture of T11-T12 vertebra, initial encounter for closed fracture; X58.XXXA Exposure to other specified factors, initial encounter
CPT/HCPCS: 36415; 71250; 85651; 86140; 86160; 86162; 86200; 86235; 86255; 86376; 86431; 99204

== ENCOUNTER → 2023-07-18 14:17 | Outpatient (BNVA) | payer MEDICARE, OTHER, SELFPAY | PROVIDERS: PCP Electrodiagnostic Medicine; Visit Provider Internal Medicine Cardiovascular Disease | DX: I10 Essential (primary) hypertension (principal); I35.8 Other nonrheumatic aortic valve disorders; R00.0 Tachycardia, unspecified; E78.5 Hyperlipidemia, unspecified; G47.30 Sleep apnea, unspecified; Z87.891 Personal history of nicotine dependence | CPT/HCPCS: 99213 ==

== ENCOUNTER → 2023-08-05 07:42 | Outpatient (BNVA) | payer MEDICARE, OTHER, SELFPAY | PROVIDERS: PCP Electrodiagnostic Medicine; Referring Provider Electrodiagnostic Medicine; Visit Provider Psychiatry & Neurology Neurology | DX: R41.3 Other amnesia (principal); R55 Syncope and collapse | CPT/HCPCS: 0346U; 36415; 82542; 99203 ==

== ENCOUNTER 2023-08-13 12:59 | Outpatient (CLI) | payer MEDICARE, OTHER, SELFPAY ==
--- NOTE | 2023-08-13 13:08 | XR_ITS ---
WS: [id number] SCREENING DEXA SCAN [employer] CLINICAL INFORMATION: POSTMENOPAUSAL COMPARISON: None. FINDINGS: The L1-L4 bone mineral density measures 0.885 g/cm2. This corresponds to a T score score of -2.8 and Z score of -2.0. Left femoral neck bone mineral density measures 0.923 g/cm2. This corresponds to a T score of -1.2 an d Z score of -0.2. Right femoral neck bone mineral density measures 0.858 g/cm2. This corresponds to a T score -1.7of an d Z score of -0.7. Mean femoral neck bone mineral density measures 0.890 g/cm2. This corresponds to a T score of -1.5 an d Z score of -0.4. IMPRESSION: Osteoporosis lumbar spine. Osteopenia femoral necks. Patient's FRAX calculated 10 year probability for major osteoporotic fracture is 30.7% and osteoporot ic hip fracture is 22.4%.
== END 2023-08-13 13:00 | disposition home or self-care (01) ==
PROVIDERS: PCP Electrodiagnostic Medicine; Visit Provider Electrodiagnostic Medicine
DX: Z13.820 Encounter for screening for osteoporosis (principal); M81.0 Age-related osteoporosis without current pathological fracture; M85.852 Other specified disorders of bone density and structure, left thigh; M85.851 Other specified disorders of bone density and structure, right thigh
CPT/HCPCS: 77080

== ENCOUNTER 2023-09-04 12:28 | Outpatient (CLI) | payer MEDICARE, OTHER, SELFPAY ==
--- NOTE | 2023-09-04 | MR_ITS ---
WS: [id number] MRI LUMBAR SPINE NONCONTRAST HISTORY: COMPRESSION COMPARISON: 05/2021 TECHNIQUE: Sagittal and axial multisequence imaging is submitted. 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 No retropulsion. Fracture is new since 05/22/2021. Stable and previously described on 07/29/2023. Normal lumbar alignment with no compression fractures or marrow edema. Minimal disc desiccation. Conus terminates normally at L1. L1-L2: Mild bilateral foraminal narrowing. No high-grade stenosis. L2-L3: Mild annular disc bulging with small foraminal osteophytes. Mild bilateral foraminal stenosis. Mild ligamentum flavum and facet arthritis. Subarticular recess encroachment has progressed since . L3-L4: Mild annular disc bulging. Disc encroachment upon the subarticular recesses and the traversing L4 nerve roots. Mild bilateral subarticular recess and foraminal encroachment. L4-L5: Mild annular disc bulging with effacement of the ventral thecal sac. Disc bulge encroaches upo n the traversing L5 nerve roots. Moderate ligamentum flavum and facet arthritis. Mild central with bi lateral subarticular recess stenosis. Mild to moderate bilateral foraminal encroachment, LEFT greater than RIGHT. L5-S1: Mild annular disc bulging. No stenosis. IMPRESSION: 1. Mild progression of degenerative changes of the lumbar spine since 05/22/2021. 2. L2-3: Mild bilateral subarticular recess and foraminal stenosis due to disc disease. Mild progress ion since 2020. 3. L3-4: Mild bilateral subarticular recess and foraminal encroachment. 4. Mild central with bilateral subarticular recess stenosis. Mild to moderate bilateral foraminal luis a nosis, LEFT greater than RIGHT. 5. Chronic 30% T11 compression fracture.
--- NOTE | 2023-09-04 13:00 | USCV_ITS ---
Andre Roy Age: 73 Gender: M : 1950 Exam Date: 09/04/2023 13:00 Ordering Phys: Gautam Gibbons MD Technologist: SANTOS Exam Location: [facility] – [place] Indication: EVAL FOR CAROTID STENOSIS Risk Factors: Previous Vascular Surgery: Right Brachial BP: / Left Brachial BP: / Right Left Velocity (cm/s) Spectral Plaque Velocity (cm/s) Spectral Plaque Syst/Diast Broadening Syst/Diast Broadening 118.00/37.50 Prox CCA 130.20/ 33.50 118.00/37.50 Mid CCA 117.80/ 39.70 108.10/33.10 Distal CCA 91.10 / 27.40 79.80/ 26.00 Prox ICA 66.80 / 19.40 73.00/ 30.20 Mid ICA 64.50 / 21.00 83.60/ 37.00 Distal ICA 79.20 / 30.50 103.80 ECA 111.70 0.71 ICA/CCA 0.61 Antegrade Vertebral Antegrade 47.90/ 17.10 cm/s 46.60/ 14.00 cm/s Tri Subclavian Tri 161.7 130.4 0 0 CONCLUSIONS Right ICA stenosis <50%. Mild atheromatous plaque right carotid bulb/ICA. Left ICA stenosis <50%. Mild atheromatous plaque left carotid bulb/ICA. Intimal thickening in the common carotid arteries and internal carotid arteries bilaterally. Normal antegrade Doppler flow noted in the right vertebral artery. Normal antegrade Doppler flow noted in the left vertebral artery. Carloz Zambrano MD (Electronically Signed) Final Date: 04 September 2023 16:23 S
--- NOTE | 2023-09-04 14:30 | MR_ITS ---
WS: [id number] MRI BRAIN WITH AND WITHOUT CONTRAST HISTORY: R41.3 - Other amnesia COMPARISON: None available. TECHNIQUE: Multiplanar imaging performed through the brain with MultiHance 16 ml's IV. No acute infarcts are seen. Triplett-white matter differentiation is well preserved. Mild symmetric cereb ral atrophy and small vessel ischemic disease. No prior infarcts. Normal temporal lobes. No hippocamp al atrophy. No susceptibility artifacts or prior lacunar infarcts. Ventricles and extra-axial spaces are normal. Clivus and pituitary gland are normal. Visualized posterior fossa and brainstem are also normal. Postcontrast images are negative for masses or vascular malformations. Dural venous sinuses are normal. Paranasal sinuses: Well aerated with no significant disease. Mastoid air cells: Normal. Calvarium and scalp: Normal. IMPRESSION: 1. No acute infarcts or masses. 2. Mild symmetric cerebral atrophy and small vessel ischemic disease. 3. Normal temporal lobes
[2023-09-04] MEDS: gadobenate dimeglumine 20 mL vial IV (14:57)
== END 2023-09-04 12:29 | disposition home or self-care (01) ==
LOC: RAD 12:29
PROVIDERS: PCP Electrodiagnostic Medicine; Visit Provider Psychiatry & Neurology Neurology
DX: M48.56XA Collapsed vertebra, not elsewhere classified, lumbar region, initial encounter for fracture (principal); R41.3 Other amnesia; R55 Syncope and collapse; G31.9 Degenerative disease of nervous system, unspecified; I65.23 Occlusion and stenosis of bilateral carotid arteries; M48.061 Spinal stenosis, lumbar region without neurogenic claudication
CPT/HCPCS: 70553; 72148; 93880; A9577

== ENCOUNTER → 2023-10-28 12:56 | Outpatient (BNVA) | payer MEDICARE, OTHER, SELFPAY | PROVIDERS: PCP Electrodiagnostic Medicine; Visit Provider Psychiatry & Neurology Neurology | DX: R41.3 Other amnesia (principal) | CPT/HCPCS: 99212 ==

== ENCOUNTER → 2023-11-18 09:59 | Outpatient (BNVA) | payer MEDICARE, OTHER, SELFPAY | PROVIDERS: PCP Electrodiagnostic Medicine; Visit Provider Internal Medicine Pulmonary Disease | DX: J98.4 Other disorders of lung (principal); G47.30 Sleep apnea, unspecified; G93.32 Myalgic encephalomyelitis/chronic fatigue syndrome; U09.9 Post COVID-19 condition, unspecified; R06.02 Shortness of breath; Z87.891 Personal history of nicotine dependence | CPT/HCPCS: 99214 ==

== ENCOUNTER 2024-01-02 06:00 | Outpatient (RCR) | payer MEDICARE, OTHER, SELFPAY | END 2024-01-19 23:59 | disposition home or self-care (01) | LOC: TPT 06:00 | PROVIDERS: Visit Provider Electrodiagnostic Medicine | DX: M54.50 Low back pain, unspecified (principal) | CPT/HCPCS: 97110; 97162 ==

== ENCOUNTER 2024-01-20 06:00 | Outpatient (RCR) | payer MEDICARE, OTHER, SELFPAY | END 2024-02-18 23:59 | disposition home or self-care (01) | LOC: TPT 06:00 | PROVIDERS: Visit Provider Electrodiagnostic Medicine | DX: M54.50 Low back pain, unspecified (principal) | CPT/HCPCS: 97110 ==

== ENCOUNTER → 2024-02-18 14:12 | Outpatient (BNVA) | payer MEDICARE, OTHER, SELFPAY | PROVIDERS: PCP Electrodiagnostic Medicine; Visit Provider Psychiatry & Neurology Neurology | DX: R41.3 Other amnesia (principal); E55.9 Vitamin D deficiency, unspecified | CPT/HCPCS: 99212 ==

== ENCOUNTER 2024-02-19 06:00 | Outpatient (RCR) | payer MEDICARE, OTHER, SELFPAY | END 2024-03-05 23:59 | disposition home or self-care (01) | LOC: TPT 06:00 | PROVIDERS: PCP Electrodiagnostic Medicine; Visit Provider Electrodiagnostic Medicine | DX: M54.50 Low back pain, unspecified (principal) | CPT/HCPCS: 97110; 97140 ==

== ENCOUNTER → 2024-06-02 10:15 | Outpatient (BNVA) | payer MEDICARE, OTHER, SELFPAY | PROVIDERS: PCP Electrodiagnostic Medicine; Visit Provider Internal Medicine Critical Care Medicine | DX: R06.09 Other forms of dyspnea (principal); J98.4 Other disorders of lung; G47.33 Obstructive sleep apnea (adult) (pediatric); I51.89 Other ill-defined heart diseases | CPT/HCPCS: 99214 ==

== ENCOUNTER → 2024-06-24 15:18 | Outpatient (BNVA) | payer MEDICARE, OTHER, SELFPAY | PROVIDERS: PCP Electrodiagnostic Medicine; Visit Provider Psychiatry & Neurology Neurology | DX: R41.3 Other amnesia (principal) | CPT/HCPCS: 99212 ==

== ENCOUNTER → 2024-12-22 12:53 | Outpatient (BNVA) | payer MEDICARE, OTHER, SELFPAY | PROVIDERS: PCP Electrodiagnostic Medicine; Visit Provider Psychiatry & Neurology Neurology | DX: R41.3 Other amnesia (principal) | CPT/HCPCS: 99212 ==